=== PATIENT | female | born 1965 | race Caucasian/White ===

== ENCOUNTER → 2020-06-16 13:07 | Outpatient (BNVA) | payer OTHER, SELFPAY | PROVIDERS: PCP Internal Medicine; Referring Provider Internal Medicine; Visit Provider Orthopaedic Surgery | DX: Z76.89 Persons encountering health services in other specified circumstances (principal) ==

== ENCOUNTER 2020-08-11 13:25 | Outpatient (REF) | payer OTHER, SELFPAY ==
--- NOTE | 2020-08-11 | US_ITS ---
EXAMINATION: COLOR-FLOW DUPLEX IMAGING OF THE BILATERAL LOWER EXTREMITY ARTERIAL SYSTEM. VELOCITY MEASUREMENTS THROUGHOUT THE FEMORAL ARTERIES CLINICAL INFORMATION: This is a 55-year-old female with absent pulses. Possible claudication. Interventional Radiologist: Finn De Souza M.D., F.S.I.R., F.A.C.R. RIGHT FEMORAL RUNOFF VELOCITIES: The right common femoral artery measures 152 cm/s and triphasic. The right profunda femoral artery is 86 cm/s and is triphasic. Right proximal superficial femoral artery measures 92 cm/s and triphasic. Mid superficial femoral artery is 150 cm/s and triphasic. Distal right superficial femoral artery measures 101 cm/s and is triphasic. Right popliteal velocity measures 63 cm/s and is triphasic. The posterior tibial artery velocity measures 108 cm/s and was biphasic. LEFT FEMORAL RUNOFF VELOCITIES: The left common femoral artery measures 184 cm/s and triphasic. The left profunda femoral artery is 148 cm/s and is triphasic. Left proximal superficial femoral artery measures 121 cm/s and triphasic. Mid superficial femoral artery is 121 cm/s and triphasic. Distal left superficial femoral artery measures 90 cm/s and is triphasic. Left popliteal velocity measures 85 cm/s and is triphasic. The posterior tibial artery velocity measures 82 cm/s and was biphasic. US/US arterial duplex LE BI IMPRESSION: 1. There is no hemodynamically significant stenosis bilaterally in the lower extremities at rest.
== END 2020-08-11 13:26 | disposition home or self-care (01) ==
LOC: HO.US 13:25
PROVIDERS: PCP Internal Medicine; Visit Provider Internal Medicine
DX: R09.89 Other specified symptoms and signs involving the circulatory and respiratory systems (principal)
CPT/HCPCS: 93925

== ENCOUNTER 2020-09-03 08:25 | Outpatient (REF) | payer OTHER, SELFPAY ==
--- NOTE | 2020-09-03 08:33 | MM_ITS ---
EXAMINATION: MM SCREENING DIGITAL BREAST TOMOSYNTHESIS, BILATERAL CLINICAL INFORMATION: Screening. Asymptomatic. The lifetime risk of breast cancer based on the Tyrer-Cuzick Model is 16%. COMPARISON: Mammography: 08/28/2019, 08/22/2018, 08/14/2017 TECHNIQUE: Digital breast tomosynthesis is performed in both the craniocaudal and mediolateral oblique views along with computer-aided detection (CAD). Synthesized 2D images are generated from the tomosynthesis. FINDINGS: There are scattered areas of fibroglandular density (ACR BI-RADS breast composition Category b). Parenchymal pattern is similar to prior exams. There is no developing density or interval mass or architectural abnormality. Fine grouped punctate calcifications close to skin 9:00 left breast are stable, likely dermal. The skin contours are unremarkable. MM/MM tomosynthesis screening BI IMPRESSION: No mammographic evidence of malignancy. ASSESSMENT: BI-RADS 2: Benign RECOMMENDATION: Routine annual mammography screening. This patient's information was entered into a reminder system with a target due date for their next mammogram.
== END 2020-09-03 08:26 | disposition home or self-care (01) ==
LOC: HO.MAMMO 08:25
PROVIDERS: PCP Internal Medicine; Visit Provider Internal Medicine
DX: Z12.31 Encounter for screening mammogram for malignant neoplasm of breast (principal)
CPT/HCPCS: 77063; 77067

== ENCOUNTER 2021-06-07 13:49 | Outpatient (REF) | payer OTHER, SELFPAY ==
[2021-06-07 14:18] LABS: COVID-19 Test Negative (Negative)
== END 2021-06-07 13:50 | disposition home or self-care (01) ==
LOC: HO.LAB 13:49
PROVIDERS: PCP Internal Medicine; Visit Provider Internal Medicine
DX: Z20.822 Contact with and (suspected) exposure to COVID-19 (principal)
CPT/HCPCS: 36415; 87635; C9803

== ENCOUNTER 2021-09-14 08:29 | Outpatient (REF) | payer OTHER, SELFPAY ==
--- NOTE | ~2021-09-14 | MM_ITS ---
EXAMINATION: MM SCREENING DIGITAL BREAST TOMOSYNTHESIS, BILATERAL CLINICAL INFORMATION: Screening. Asymptomatic. The lifetime risk of breast cancer based on the Tyrer-Cuzick Model is 17%. COMPARISON: Mammography: 09/03/2020, 08/28/2019, 08/22/2018 TECHNIQUE: Digital breast tomosynthesis is performed in both the craniocaudal and mediolateral oblique views along with computer-aided detection (CAD). Synthesized 2D images are generated from the tomosynthesis. FINDINGS: There are scattered areas of fibroglandular density (ACR BI-RADS breast composition Category b). There are no significant masses, abnormal calcifications, or other abnormalities. There are a few tightly grouped punctate uniform round calcifications again seen close to skin mid 9:00 left breast similar to prior study. The skin contours are smooth. There are no significant changes. MM/MM tomosynthesis screening BI IMPRESSION: No mammographic evidence of malignancy. ASSESSMENT: BI-RADS 2: Benign RECOMMENDATION: Routine annual mammography screening. This patient's information was entered into a reminder system with a target due date for their next mammogram.
== END 2021-09-14 08:30 | disposition home or self-care (01) ==
LOC: HO.MAMMO 08:29
PROVIDERS: PCP Internal Medicine; Visit Provider Internal Medicine
DX: Z12.31 Encounter for screening mammogram for malignant neoplasm of breast (principal)
CPT/HCPCS: 77063; 77067

== ENCOUNTER 2022-08-10 13:45 | Outpatient (REF) | payer OTHER, SELFPAY ==
--- NOTE | ~2022-08-10 | US_ITS ---
EXAMINATION: US VENOUS ULTRASOUND WITH DOPPLER LOWER EXTREMITY, LEFT CLINICAL INFORMATION: Left side/leg pain and swelling. COMPARISON: None TECHNIQUE: Ultrasound of the deep veins is performed from the hip to the calf with compression sonography and color and pulse Doppler assessment. Spectral analysis with color-flow imaging is performed. FINDINGS: The common femoral vein is compressible and exhibits a normal phasic waveform; this suggests that the iliac veins are widely patent above. Within the proximal thigh, the visualized profunda femoris vein is normal. The examined greater saphenous vein and saphenofemoral junction are normal. Superficial femoral vein is patent in the proximal, mid and distal thigh. Popliteal vein is normal to the level of the trifurcation. On compression mcintyre scale and color Doppler images, the visualized deep calf veins are grossly patent. No evidence of Acevedo's cyst. Additional images were acquired in the left anterior thigh in the region of pain. No evidence of fluid collection or soft tissue edema in this area. US/US venous duplex LE LT IMPRESSION: No evidence of deep vein thrombosis in the left lower extremity.
== END 2022-08-10 13:46 | disposition home or self-care (01) ==
LOC: HO.US 13:45
PROVIDERS: PCP Internal Medicine; Visit Provider Internal Medicine
DX: R22.43 Localized swelling, mass and lump, lower limb, bilateral (principal)
CPT/HCPCS: 93971

== ENCOUNTER 2022-09-20 08:09 | Outpatient (REF) | payer OTHER, SELFPAY ==
--- NOTE | ~2022-09-20 | MM_ITS ---
EXAMINATION: BONE DENSITOMETRY CLINICAL INDICATION: Postmenopausal. COMPARISON: None (current study represents initial baseline exam). TECHNIQUE: Using a [employer] DXA System (software version: 13.1) manufactured by [employer], dual-energy x-ray absorptiometry was performed of the lumbar spine and left hip. The images are of good technical quality. Summary results are attached. FINDINGS: AP SPINE L1-L4: BMD 0.962 g/cm2, Z-score -2.0, T-score -1.8, osteopenia. LEFT FEMUR, NECK: BMD 0.930 g/cm2, Z-score -0.4, T-score -0.8, normal. LEFT FEMUR, TOTAL: BMD 0.981 g/cm2, Z-score -0.3, T-score -0.2, normal. IDENTIFIED RISK FACTORS: Low calcium intake. Menopause. HISTORY OF FRACTURE: Pelvis. Other (ankle). MEDICATIONS: None listed. MM/XR DEXA axial skeleton IMPRESSION: 1. DIAGNOSIS: Osteopenia based on the lowest T-score value of -1.8 in the lumbar spine applying World Health Organization criteria. 2. 10-YEAR FRACTURE RISK PREDICTION, FRAX: Major osteoporotic fracture (clinical spine, forearm, hip or shoulder) 9.8%. Hip fracture 0.4%. 3. Treatment Recommendations: NOF guidelines recommend consideration for treatment in postmenopausal women and men age 50 and older presenting with the following: -A hip or vertebral (clinical or morphometric) fracture. -T-score less than or equal to -2.5 at the femoral neck or spine after appropriate evaluation to exclude secondary causes. -Low bone mass at the hip or spine and a 10-year fracture probability by FRAX of greater than or equal to 3% for hip fracture or greater than or equal to 20% for major osteoporotic fracture based on the [place] adapted WHO algorithm. 4. Other Recommendations: All treatment decisions require clinical judgment and consideration of individual patient factors, including patient preferences, comorbidities, previous drug use, risk factors not captured in the FRAX model (e.g. frailty, falls, vitamin D deficiency, increased bone turnover, interval significant decline in bone density) and possible under or overestimation of fracture risk by FRAX. Additional medical evaluation for secondary cause of low bone mineral density may be appropriate. FUTURE SCAN RECOMMENDATION: People with diagnosed cases of osteoporosis or at high risk for fracture should have regular bone mineral density tests. For patients eligible for Medicare, routine testing is allowed once every 2 years. The testing frequency can be increased to one year for patients who have rapidly progressing disease, those who are receiving or discontinuing medical therapy to restore bone mass, or have additional risk factors.
--- NOTE | ~2022-09-20 | MM_ITS ---
EXAMINATION: MM SCREENING DIGITAL BREAST TOMOSYNTHESIS, BILATERAL CLINICAL INFORMATION: Screening. Asymptomatic. The lifetime risk of breast cancer based on the Tyrer-Cuzick Model is 13%. COMPARISON: Mammography: 09/14/2021, 09/03/2020, 08/28/2019 TECHNIQUE: Digital breast tomosynthesis is performed in both the craniocaudal and mediolateral oblique views along with computer-aided detection (CAD). Synthesized 2D images are generated from the tomosynthesis. FINDINGS: There are scattered areas of fibroglandular density (ACR BI-RADS breast composition Category b). There are no significant masses, abnormal calcifications, or other abnormalities. Tightly grouped fine calcifications close to skin medial left breast possibly dermal, stable. No developing density or architectural abnormality. The axilla are unremarkable. MM/MM tomosynthesis screening BI IMPRESSION: No mammographic evidence of malignancy. ASSESSMENT: BI-RADS 2: Benign RECOMMENDATION: Routine annual mammography screening. This patient's information was entered into a reminder system with a target due date for their next mammogram.
== END 2022-09-20 08:10 | disposition home or self-care (01) ==
LOC: HO.MAMMO 08:09
PROVIDERS: Visit Provider Internal Medicine
DX: Z12.31 Encounter for screening mammogram for malignant neoplasm of breast (principal); Z13.820 Encounter for screening for osteoporosis; Z78.0 Asymptomatic menopausal state
CPT/HCPCS: 77063; 77067; 77080

== ENCOUNTER → 2022-10-28 09:34 | Outpatient (BNVA) | payer OTHER, SELFPAY | PROVIDERS: PCP Internal Medicine; Visit Provider Urology | DX: Z13.89 Encounter for screening for other disorder (principal) ==

== ENCOUNTER 2022-11-07 08:20 | Outpatient (REF) | payer OTHER, SELFPAY ==
--- NOTE | ~2022-11-07 | US_ITS ---
EXAMINATION: US ABDOMEN COMPLETE CLINICAL INFORMATION: Other microscopic hematuria. COMPARISON: None available. TECHNIQUE: Real-time imaging of the abdominal viscera. FINDINGS: PANCREAS: Normal. ABDOMINAL AORTA: The proximal, mid, and distal segments are normal in caliber. INFERIOR VENA CAVA: Visualized portions are normal. LIVER: Normal. The liver is normal in size. The liver contour is normal. Parenchymal echogenicity is normal. No focal hepatic lesion. There is no intrahepatic biliary duct dilatation seen. GALLBLADDER: The gallbladder is physiologically distended without evidence of stones, sludge, polyps, wall thickening or pericholecystic fluid. COMMON BILE DUCT: Normal in caliber measuring 0.2 cm in diameter. RIGHT KIDNEY: Normal. No hydronephrosis. No renal calculi or focal parenchymal lesions. The kidney measures 10.9 cm in maximum dimension. LEFT KIDNEY: Normal. No hydronephrosis. No renal calculi or focal parenchymal lesions. The kidney measures 11.2 cm in maximum dimension. SPLEEN: Normal. The spleen measures 9.0 cm in maximum dimension. FREE FLUID: None. US/US abdomen complete IMPRESSION: Normal abdominal ultrasound.
== END 2022-11-07 08:21 | disposition home or self-care (01) ==
LOC: HO.HMGCX 08:20
PROVIDERS: PCP Internal Medicine; Visit Provider Urology
DX: R31.29 Other microscopic hematuria (principal)
CPT/HCPCS: 76700

== ENCOUNTER → 2022-12-01 13:47 | Outpatient (BNVA) | payer OTHER, SELFPAY | PROVIDERS: PCP Internal Medicine; Visit Provider Urology | DX: R31.29 Other microscopic hematuria (principal) | CPT/HCPCS: 52000 ==

== ENCOUNTER 2023-09-22 08:04 | Outpatient (REF) | payer OTHER, SELFPAY ==
--- NOTE | ~2023-09-22 | MM_ITS ---
EXAMINATION: MM SCREENING DIGITAL BREAST TOMOSYNTHESIS, BILATERAL CLINICAL INFORMATION: Screening. Asymptomatic. COMPARISON: Mammography: This study is compared with prior exams dating back to 2018. TECHNIQUE: Digital breast tomosynthesis is performed in both the craniocaudal and mediolateral oblique views along with computer-aided detection (CAD). Synthesized 2D images are generated from the tomosynthesis. FINDINGS: There are scattered areas of fibroglandular density (ACR BI-RADS breast composition Category b). There are no significant masses, abnormal calcifications, or other abnormalities. Few, benign, unchanged calcifications are present in the left breast. MM/MM tomosynthesis screening BI IMPRESSION: No mammographic evidence of malignancy. ASSESSMENT: BI-RADS BI-RADS 1 - Negative RECOMMENDATION: Routine annual mammography screening. 1 year F/U This examination should not preclude the clinical evaluation of a suspicious palpable abnormality. This patient's information was entered into a reminder system with a target due date for their next mammogram.
== END 2023-09-22 08:05 | disposition home or self-care (01) ==
LOC: HO.MAMMO 08:04
PROVIDERS: PCP Internal Medicine; Visit Provider Internal Medicine
DX: Z12.31 Encounter for screening mammogram for malignant neoplasm of breast (principal)
CPT/HCPCS: 77063; 77067

== ENCOUNTER → 2023-09-22 08:15 | Outpatient (BNV) | payer OTHER, SELFPAY | PROVIDERS: PCP Internal Medicine; Visit Provider Radiology Diagnostic Radiology | DX: Z12.31 Encounter for screening mammogram for malignant neoplasm of breast (principal) | CPT/HCPCS: 77063; 77067 ==

== ENCOUNTER 2024-09-27 08:25 | Outpatient (REF) | payer OTHER, SELFPAY ==
--- OUTSIDE RECORDS SUMMARY | 2024-09-27 08:38 | XMS_ITS | Patient Health Record ---
Author Organization [employer] [facility] Address [address] [place] [address] Care Team Providers Care Chha Name Role Phone SHILOH JACKMAN M.D. Primary Care Provider Unavail able Katherin Niño Unavailable [phone] ANGELIQUE PETERSON Unavailable [phone] Allergies No Known Allergies Results Component Value Reference Range Notes Urinalysis Reviewed date:09/29/2023 10:59:57 AM Interpretation: Performing Lab: Notes/Report: PH 5.0 PROTEIN Neg GLUCOSE Neg BLOOD Small THIN PREP,HPV,NASRA IF HPV+ ( >29YR)(DIAG) Reviewed date:10/04/2023 11:23:56 AM Interpretation: Performing Lab:Testing performed or reported by [facility], a Service of [facility], [address] [place] [address] Jimy Carrasquillo MD, Tank Refinisher [facility]# [id number] Notes/Report: Patient Name: CORTEZ REHMAN Patient : 1965 (Age: 58) Lab Collection Date: 09/29/2023 Accession Date: 09/29/2023 Sign Out Date: 10/04/2023 Tissue Source: 1: THINPREP COOK PRESSURE PAP TEST, CERVICAL/VAGINAL: Final Diagnosis: NEGATIVE FOR INTRAEPITHELIAL LESION OR MALIGNANCY. Satisfactory for evaluation. Endocervical/transformation zone present. Procedures/Addenda: Human Papilloma Virus, High-Risk(Reflex GT) Status: Signed Out Interpretation: Negative Methodology: Vendly Aptima HPV mRNA assay (Nucleic Acid Amplification Test, NAAT) Clinical History: Date of Last Menstrual Period: not available Menstrual History: Post-menopausal Contraceptive History: not available Ancillary Testing: HPV (Reflex GT) Case imaged by the FarfetchPrep Imaging System with manual rescreening or review. Performed at [facility] department of Cytology, [facility] Clinical History (other): Z01.419, 09/17/20 NIL neg HPV Phone #: [phone], On-Call Pathologist: [id number] Reason For Referral No Information Medications Medication SIG (Take, Route, Fr equency, Duration) Notes Start Date End Date Status clonazePAM 0.5 MG 1 tablet Orally Once a day Active Simvastatin 80 MG 1 tablet in the even ing Orally Once a day Active Sertraline HCl 50 MG 3 tablets Orally Once a day Active Omeprazole 20 MG 1 capsule 30 minutes before morning meal Orally Once a day for 30 day(s) 09/29/2023 Active Fioricet 50-300-40 MG 1 capsule as neede d Orally every 4 hrs Active Zetia 10 MG 1 tablet Orally Once a day Active Social History Tobacco Use: Social History Observation Description Date Details (start date - stop date) Former Smoker NA - NA Tobacco Use/Smoking Question Answer Notes Are you a former smoker How long has it been since you last smoked? 6-12 months Alcohol Screen (Audit-C) Question Answer Notes Did you have a drink containing alcohol in the p ast year? No Points 0 Interpretation Negative Sexual History Question Answer Notes Had sex in the past 12 months (vaginal, oral, or anal)? No Have you ever had a Sexually transmitted disease ? No Problems Problem Type SNOMED Code ICD Code Onset Dates Problem Status W/U Status Risk Notes Problem Postmenopausal atrophic vaginitis (17873677) Postmenopausal atrophic vaginitis (N95.2) Active confirmed Problem Postmenopausal bleeding (04872539) Postmenopausal bleeding (N95.0) Active confirmed Problem Morbid obesity (disorder) (114759892) Morbid (severe) obesity due to excess calories (E66.01) Active confirmed Problem Menopause (724295302) Menopausal and female climacteric states (N95.1) Active confirmed Vital Signs Temperature 97.4 degrees Fahrenheit 09/29/2023 Blood pressure diastolic 72 mm Hg 09/29/2023 Height 68 in 09/29/2023 Blood pressure systolic 134 mm Hg 09/29/2023 Weight 221 lbs 09/29/2023 BMI 33.6 kg/m2 09/29/2023 Encounters Encounter Location Date Provider Diagnosis Total [address] [address] 10/13/2023 Katherin Niño [facility] [address] [place] [address] 09/29/2023 Katherin Niño Encounter for gynecological examination (general) (routine) without abnormal findings Z01.419 ; Encounter for screening mammogram for malignant neoplasm of breast Z12.31 ; Other specified disorders of bone density and structure, multiple sites M85.89 ; Morbid (severe) obesity due to excess calories E66.01 and Hematuria, unspecified R31.9 [facility] [employer] [facility] [address] [place] [address] 10/26/2023 Katherin Niño Assessments Encounter Date Diagnosis (ICD Code) Assessment Notes Treatment Notes Treatment Clinical Notes Section Notes 09/29/2023 Encounter for gynecological examination (general) (routine) without abnormal findings (ICD-10 - Z01.419) PAP TEST WITH HPV TYPING WAS OBTAINED. 09/29/2023 Encounter for screening mammogram for malignant neoplasm of breast (ICD-10 - Z12.31) REGULAR MAMMOGRAMS AND SBE'S WERE RECOMMENDED. 09/29/2023 Other specified disorders of bone density and structure, multiple sites (ICD-10 - M85.89) DISCUSSED OSTEOPENIA AND ITS IMPACT ON HER HEALTH. ADEQUATE CALCIUM AND VIT D. WEIGHT BEARING EXERCISES. REPEAT BMD IN 2024. 09/29/2023 Morbid (severe) obesity due to excess calories (ICD-10 - E66.01) DISCUSSED THICK ABDOMINAL WALL AND DIFFICULTY IN ASSESSING HER OVARIES AND UTERUS. RECOMMENDED PELVIC ULTRASOUND. SHE AGREED. NEGATIVE EFFECTS OF OBESITY ON HER HEALTH WERE DISCUSSED. WEIGHT LOSS PROGRAM WAS RECOMMENDED. 09/29/2023 Hematuria, unspecified (ICD-10 - R31.9) HEMATURIA WORK UP DONE LAST YEAR WAS NEGATIVE. Plan Of Treatment Pending Test Test Name Order Date Urinalysis 03/19/2018 Urinalysis 02/25/2019 THIN PREP,HPV,NASRA IF HPV+ (>29YR)(SCRN) 03/19/2018 BONE DENSITY 09/17/2020 BONE DENSITY 09/22/2021 [facility] Digital Mammo Screening 09/27/2022 [facility] Digital Mammo Screening 09/29/2023 [facility] Digital Mammo Screening 09/22/2021 [facility] Digital Mammo Screening 09/17/2020 ULTRASOUND: PELVIC W/TRANSVAGINAL 2018 Next Appt Details Provider Name:Katherin gonzalez, 10/07/2024 10:20:00 AM, [address], [address], [place], [address], Insurance Providers Payer Name Payer Address Payer Phone Subscriber Number Group Number Insured Name Patient Relationship to Insured Coverage Start Date Coverage End Date [employer] [address] SHEYLA BROWN [id number] APOORVA REHMAN Spouse - patient is the spouse of the insured Medical (General) History Medical History History ICD Code Headache R51 Postmenopausal bleeding N95.0 Other recurrent depressive disorders F33 .8 Anxiety disorder, unspecified F41.9 Postmenopausal atrophic vaginitis N95.2 Menopausal and female climacteric states N95.1 Polyp of corpus uteri N84.0 Abnormal weight gain R63.5 Pelvic Pain R10.2 Other specified disorders of bone densit y and structure, multiple sites M85.89 Surgical History Surgery Date(Month/Year) Colonoscopy Hysteroscopy, Polypectomy with Truclear, Fractional D&C 07/06/17 Hospitalization History Reason Date(Month/Year) See Surgical Hx 2 Vaginal Deliveries
--- OUTSIDE RECORDS SUMMARY | 2024-09-27 08:38 | XMS_ITS ---
Author Organization [facility] [employer] [facility] Address [address] [place] [address] [address] [place] [address] Care Team Providers Care Assistant Plant Control Operator Name Role Phone AUGUSTINA Burgos, SHILOH Primary Care Provider Unavail Katherin Wilhelm Unavailable [phone] REASON FOR VISIT ULTRA - TAW CK OVARIES Encounters Encounter Location Date Provider Diagnosis [facility] [employer] [address] [place] [address] 11/03/2023 Katherin Niño Plan Of Treatment Next Appt Details Provider Name:Katherin gonzalez, 10/07/2024 10:20:00 AM, [address] [place] [address], [facility] [address], [place], [address], Progress Notes * TEN REHMANB: 6 (59 yo F)Acc No.[id number]:11/03/2023 PROGRESS NOTES Patient:?CORTEZ REHMAN Appointment Provider:?Katherin gonzalez M.D. :1965???Age:58 Y???Sex:Female D ate:11/03/2023 Address:[address] [place], [place] [id number] Pcp:SHILOH JACKMAN M.D. Subjective: * Chief Complaints: * ???1. ULTRA - TAW CK OVARIES . * Medical History:? Objective: * Vitals:? Assessment: Plan: * Treatment: * Images: Billing Information: * Visit Code:? * Procedure Codes:? * Electronic signature of Debbie Niño MD on 09/27/2024 at 08:38 AM EST Sign off status: Pending * Appointment Provider:?Katherin Niño M.D. Date:?11/03/2023 Generated for Melody cox/Eleazar/Jerry on:?09/27/2024 08:38 AM EST
--- OUTSIDE RECORDS SUMMARY | 2024-09-27 08:38 | XMS_ITS ---
Author Organization [facility] Address [address] [place] [address] Care Team Providers Care Missile Mechanic Name Role Phone SHILOH JACKMAN M.D. 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 [address], [place], [address], Progress Notes * TEN REHMANB: 6 (59 yo F)Acc No.[id number]:02/09/2024 PROGRESS NOTES Patient:?CORTEZ REHMAN Provider:?ANGELIQUE PETERSON MD :1965???Age:58 Y???Sex:Female D ate:02/09/2024 Address:[address] [place], [place] [id number] Pcp:SHILOH JACKMAN M.D. Subjective: * Chief Complaints: * ???1. Annual TREE TRIMMER Physical. * HPI: ???Constitutional:? 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 She has been in state of [...] She exercises x days/week by . * ROS:?Annual Interior Design Instructor Exam ROS:?Bowel habit changes?denies.?Bladder symptoms?denies.?Vaginal discharge, unusual?denies.?Vaginal itch or odor?denies.?weight or appetite changes?denies.?Chest pains, SOB?denies.?depression?denies.?Breast:?Denies?Breast lump.?Denies?Nipple discharge.?Hematology:?Denies?Swollen glands.?Skin:?Patient denies?changing moles.?Psychiatric:?Denies?Anxiety.? * Medical History:? Objective: * Vitals:? * Examination: ???General Examination: ?GENERAL APPEARANCE:?in no acute distress, well developed, well nourished, social work manager present in room.?HEAD:?normocephalic, atraumatic.?NECK/THYROID:?neck supple, full range of motion, thyroid normal.?LYMPH NODES:?no axillary or supraclavicular adenopathy.?SKIN:? normal, good turgor, no rashes, no suspicious lesions.?BREASTS:? normal, no dimpling, no discharge, no drainage, no masses palpable bilaterally, nontender.?ABDOMEN:? soft, non-tender, non distended without masses or hepatosplenomegay.?RECTAL:? normal tone, no masses palpable.?BACK:? no costovertebral angle tenderness.?FEMALE GENITOURINARY:?Vulva without lesions or masses, vagina pink without abnormal discharge, lesions or masses, cervix appears normal and is not tender to palpation, uterus is normal size, mobile, nontender and anteverted, ovaries are not palpable.?NEUROLOGIC:? alert and oriented, gait normal.?PSYCH:? alert, oriented, cognitive function intact, cooperative with exam, good eye contact, mood/affect full range, speech clear.? Assessment: * Assessment: 1.?Encounter for gynecologic al examination (general) (routine) without abnormal findings - Z01.419 (Primary)???2.?Encounter for screening mammogram for malignant neoplasm of breast - Z12.31???3.?Encounter for screening for infections with a predominantly sexual mode of transmission - Z11.3??? Plan: * Treatment: 2.?Encounter for screening m ammogram for malignant neoplasm of breast?Imaging: MM Digital Screening Mammogram 3D * Follow Up:?1 Year (Reason: Y early Interior Design Instructor Exam) * Images: Billing Information: * Visit Code:? 13178 Preventive Care Est Pt. Age 40-64. * Procedure Codes:? 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 She has been in state of [...] General Examination GENERAL APPEARANCE: in no ac [place] distress, well developed, well nourished, social work manager present in room HEAD: normocephalic, atrau matic [...]
--- OUTSIDE RECORDS SUMMARY | 2024-09-27 08:39 | XMS_ITS ---
Author Organization [facility] Address [address] [place] [address] [address] [place] [address] Care Team Providers Care Health And Safety Tech Name Role Phone SHILOH JACKMAN M.D. Primary Care Provider Unavail Katherin Wilhelm [phone] WILDER REQUEST 2023 Encounters Encounter Location Date Provider Diagnosis [facility] [address] [place] [address] 10/26/2023 Katherin Niño Plan Of Treatment Next Appt Details Provider Name:Katherin gonzalez, 10/07/2024 10:20:00 AM, [address] [place] [address], [address], [place], [address], Progress Notes * MARA REHMANDIONNAB: 6 (59 yo F)Acc No.[id number]:10/26/2023 Patient:?CORTEZ REHMAN :1965???Age:58 Y???Sex:Female Address:[address] [place] [address], [address] * true * Date:? Generated for Printi ng/Fajorgeg/eTransmitting on:?09/27/2024 08:38 AM EST
== END 2024-09-27 08:26 | disposition home or self-care (01) ==
LOC: HO.MAMMO 08:25
PROVIDERS: PCP Internal Medicine; Visit Provider Internal Medicine
DX: Z12.31 Encounter for screening mammogram for malignant neoplasm of breast (principal)
CPT/HCPCS: 77063; 77067

== ENCOUNTER → 2024-09-27 08:30 | Outpatient (BNV) | payer OTHER, SELFPAY | PROVIDERS: PCP Internal Medicine; Visit Provider Internal Medicine | DX: Z12.31 Encounter for screening mammogram for malignant neoplasm of breast (principal) | CPT/HCPCS: 77063; 77067 ==

== ENCOUNTER 2024-10-29 10:24 | Outpatient (AMB) | payer OTHER, SELFPAY ==
--- NOTE | 2024-10-29 10:25 | A.OFFPC_ITS ---
Vital Signs 10/29/24 10:36 Height 5 ft 7 in Weight 198 lb BMI 31.0 BP 140/82 H Blood Pressure Location Rt brachial Pulse 88 Pulse Source Pulse Oximeter Temp 97.2 F Pulse Oximetry (%) 97 Intake Visit Reasons: New Patient Intake Note: menopause Allergies No Known Allergies Allergy (Verified 10/29/24 11:57) Medication List - Last Reconciled 10/29/24 by Elvai Morgan PA-C [id number]-[id number]-ublm 50-325-40 mg tabs PO clonazepam 0.5 mg PO BID PRN estradiol 1 patch transdermal 2XW ezetimibe (Zetia) 10 mg PO DAILY ibuprofen (Motrin IB) 200 mg PO Q6H PRN sertraline (Zoloft) 25 mg PO DAILY simvastatin 80 mg PO DAILY PFSH Medical History (Updated 10/29/24 @ 12:14 by Elvia Morgan PA-C) Blurry vision Hormone imbalance Establishing care with new doctor, encounter for Hyperlipidemia History of colon polyps Tinnitus Palpitations Microscopic hematuria UTI (urinary tract infection) Depression Anxiety High cholesterol HTN (hypertension) Social History Alcohol intake: never Current occupational status: unemployed Questionnaire PHQ-9 Over the last 2 weeks, how often have you been bothered by any of the following problems? 1. Little interest or pleasure in doing things: several days 2. Feeling down, depressed, or hopeless: several days 3. Trouble falling or staying asleep, or sleeping too much: not at all 4. Feeling tired or having little energy: nearly every day 5. Poor appetite or overeating: not at all 6. Feeling bad about yourself - or that you are a failure or have let yourself or your family down: nearly every day 7. Trouble concentrating on things, such as reading the newspaper or watching television: several days 8. Moving or speaking so slowly that other people could have noticed. Or the opposite - being so fidgety or restless that you have been moving around a lot more than usual: not at all 9. Thoughts that you would be better off or of hurting yourself in some way: not at all Total score: 9 Depression Screening Interpretation: Positive Depression Screening Follow-up: Existing condition and In treatment Depression Screening Done: Yes 23932 - PHQ-9 Billing: Yes Source: Developed by Drs. Luis Carvalho, Lauren Mohan, Gonzalez Edwards and colleagues, with an educational prashanth from [facility]. Thrive Questionnaire Date Thrive assessed: 10/29/24 I am a: Patient What is your living situation today?: I have a steady place to live Within the past 12 months, did the food you bought not last and you didn't have the money to get more?: Never true Within the past 12 months, did you worry whether your food would run out before you got money to buy more?: Never true Do you have trouble paying for medicines?: No Do you have trouble getting transportation to medical appointments?: No Do you have trouble paying your heating and electricity bill?: No Do you have trouble taking care of your child, family member or friend?: No Do you have trouble with day-to-day activities such as bathing, preparing meals, shopping, managing finances, etc.?: No Are you currently unemployed and looking for a job?: No (retired) Are you interested in more education?: No Currently or been in a relationship where the following occur: No concerns reported THRIVE Score: 0 AUDIT C Alcohol Use Questionnaire (AUDIT-C) 1. How often do you have a drink containing alcohol?: Never 3. How often do you have six or more drinks on one occasion?: Never Total Score: 0 Score Reviewed/Action Taken: No MARILYN-7 AMB Questionnaire MARILYN-7 Date MARILYN - 7 assessed: 10/29/24 Feeling nervous, anxious, or on edge: 1 = Several days Not being able to stop or control worryin = Nearly every day Worrying too much about different things: 3 = Nearly every day Trouble relaxin = Nearly every day Being so restless that it is hard to sit still: 0 = Not at all Becoming easily annoyed or irritable: 1 = Several days Feeling afraid as if something awful might happen: 1 = Several days Total MARILYN-7 score (0-4 normal; 5-9 mild; 10-14 moderate; 15-21 severe): 12 Source: Developed by Drs. Luis Carvalho, Lauren Mohan, Gonzalez Edwards and colleagues, with an educational prashanth from [facility]. MARILYN-7 Assessment Billing MARILYN-7 Assessment Tool: MARILYN-7 Assessment 81885 Physical exam (Primary Care) Vital Signs: Last Vital Signs Temp 97.2 F 10/29/24 10:36 Pulse 88 10/29/24 10:36 BP 140/82 H 10/29/24 10:36 Pulse Ox 97 10/29/24 10:36 Care Plan Goal for BP management: <130/80 patient will be started on 5 mg of lisinopril will return in 1 month. BMI result Body Mass Index 31.0 BMI Assessment/Plan discussion: High BMI High, discussed plan: lifestyle, weight reduction, dietary, physical activity and alcohol moderation Depression Screening Interpretation: Positive Depression Screening Follow-up: Existing condition and In treatment Currently or been in a relationship where the following occur: No concerns reported Coding Level of Care Code Est Pt Level 4 (78271) Complex EM visit Add On G2211 Diagnoses Establishing care with new doctor, encounter for Z76.89 Palpitations R00.2 Tinnitus H93.19 Depression F32.9 Microscopic hematuria R31.29 History of colon polyps Z86.0100 Hyperlipidemia E78.5 HTN (hypertension) I10 Anxiety F41.9 Hormone imbalance E34.9 Blurry vision H53.8 Additional Codes PHQ-9 - 69686 - PHQ-9 Billing: Yes ([id number]) MARILYN-7 Assessment Billing - MARILYN-7 Assessment Tool: MARILYN-7 Assessment 48365 ([id number]) Assessment & Plan Assessment & Plan (1) Establishing care with new doctor, encounter for: Code(s): Z76.89 - Persons encountering health services in other specified circumstances Category: Medical (2) Palpitations: Code(s): R00.2 - Palpitations Category: Medical Plan: Will refer patient for outpatient labs to assess any chemistry abnormalities, will also refer for EKG and 3 day Holter monitor. Condition is stable will continue to monitor. (3) Tinnitus: Code(s): H93.19 - Tinnitus, unspecified ear Category: Medical Plan: Patient with chronic tinnitus to right ear and decreased hearing will refer to ENT for further evaluation and management. Condition is chronic and stable continue to monitor. (4) Depression: Code(s): F32.9 - Major depressive disorder, single episode, unspecified Category: Medical Plan: Patient being followed by Dr. Janay Bowens. Currently being prescribed Sertraline [address] Mead was prescribing the patient's Clonazepam 0.5 mg PO BID. I explained to the patient if she can speak to her psychiatrist about prescribing all psychiatric medications and patient reports she will discuss this with her. Condition is chronic and stable continue to monitor. (5) Microscopic hematuria: Code(s): R31.29 - Other microscopic hematuria Category: Medical Plan: Patient with microscopic hematuria has been seen by Urology in the past and was cleared. Condition is chronic and stable continue to monitor. (6) History of colon polyps: Code(s): Z86.0100 - Personal history of colon polyps, unspecified Category: Medical Plan: Patient had a colonoscopy approximately 9 years ago and had benign polyps. She is due for colonoscopy next year. Condition is stable continue to monitor. (7) Hyperlipidemia: Code(s): E78.5 - Hyperlipidemia, unspecified Category: Medical Plan: Total cholesterol goal less than 200, triglyceride level goal less than 150, LDL level goal less than 100, HDL level goal greater than 40. Patient will have fasting labs before her next appointment. Patient to continue simvastatin 80 mg daily, Zetia 10 mg daily. Condition is chronic and stable will continue to monitor. (8) HTN (hypertension): Code(s): I10 - Essential (primary) hypertension Category: Medical Plan: Blood pressure goal less than 140/80. Patient has undiagnosed hypertension. Patient will be started on lisinopril 5 mg daily and return in 1 month to reassess blood pressure. Condition is stable will continue to monitor. (9) Anxiety: Code(s): F41.9 - Anxiety disorder, unspecified Category: Medical Plan: Patient being followed by Dr. Janay Bowens. Currently being prescribed Sertraline [address] Mead was prescribing the patient's Clonazepam 0.5 mg PO BID. I explained to the patient if she can speak to her psychiatrist about prescribing all psychiatric medications and patient reports she will discuss this with her. Condition is chronic and stable continue to monitor. (10) Hormone imbalance: Code(s): E34.9 - Endocrine disorder, unspecified Category: Medical Plan: Patient reports hormone imbalance currently on hormone replacement therapy with an IUD and estradiol patch. Being followed by Nona Bryan MD in [place]. Patient requesting additional labs to be completed due to she had an elevated prolactin level in the past and has never had it rechecked. Will recheck requested labs that patient specifically asked for. Condition is chronic and stable continue to monitor. (11) Blurry vision: Code(s): H53.8 - Other visual disturbances Category: Medical Plan: Patient reports blurry vision for the past 8-9 months. Reports that she seen the natural resources professor in June of 2024 with dilation of her eyes and was within normal limits. She was prescribed eye drops although she continues to have the blurry vision which has been persistent and unchanged not worsened. I explained to her that if she would like a 2nd opinion. Condition is chronic and stable continue to monitor. Plan Plan Patient was informed and verbally consented to the use of an ambient scribe for clinic note documentation during this visit. 1. Depression Continue current medications under psychiatrist's supervision. 2. Ganglion Cyst Continue observation; orthopedics referral if needed. 3. History Of Polyps Schedule follow-up colonoscopy in 2025. 4. Trace Hematuria Observe based on normal prior urological work-up. 5. Blurred Vision Consider ophthalmology second opinion. 6. Hyperlipidemia Continue simvastatin; annual lipid monitoring. 7. Migraines Continue OTC medications as needed; monitor migraine patterns. 8. Anxiety Current management with sertraline; continue therapy. 9. Tinnitus Referral to ENT for evaluation. 10. Hormone Imbalance Continue hormone therapy and reevaluate levels. 11. Essential Hypertension Start lisinopril 5 mg daily; monitor blood pressure. During the visit, I discussed with the patient her comprehensive care plan while considering her complex medical history, particularly focusing on her anxiety, depression, hypertension, and hormone imbalance. We talked about the benefits of continuing her current psychiatric medications and investigating potential contributing factors such as thyroid function, vitamin deficiencies, and reevaluation of hormone levels. The decision to prescribe lisinopril was described, emphasizing the need to manage her currently elevated yet not excessively high blood pressure. The potential use of ENT referral for addressing tinnitus, and the consideration for ophthalmology review to better understand her persistent blurred vision were highlighted. For her ongoing care, including the existing hormone replacement therapy and upcoming screening colonoscopy, these will remain part of her regular assessments. Follow-ups were explained to monitor her blood pressure, evaluate her response to new interventions, and address any further concerns are planned. Orders: Orders C Reactive Protein Today Z00.00 - Encounter for general adult medical examination without abnormal findings Lipid Panel Today Z00.00 - Encounter for general adult medical examination without abnormal findings TSH reflex Free T4 Today Z00.00 - Encounter for general adult medical examination without abnormal findings Erythrocyte Sedimentation Rate Today Z00.00 - Encounter for general adult medical examination without abnormal findings Zinc Today Z00.00 - Encounter for general adult medical examination without abnormal findings Parathyroid Hormone Intact Today Z00.00 - Encounter for general adult medical examination without abnormal findings Phosphorus Today Z00.00 - Encounter for general adult medical examination without abnormal findings Prolactin Today Z00.00 - Encounter for general adult medical examination without abnormal findings Complete Blood Count Auto Diff Today Z00.00 - Encounter for general adult medical examination without abnormal findings Comprehensive [place]. Panel Fast Today Z00.00 - Encounter for general adult medical examination without abnormal findings Hemoglobin A1c Today Z00.00 - Encounter for general adult medical examination without abnormal findings Magnesium Today Z00.00 - Encounter for general adult medical examination without abnormal findings Liver Panel Today Z00.00 - Encounter for general adult medical examination without abnormal findings Vitamin B12 and Folate Today Z00.00 - Encounter for general adult medical examination without abnormal findings Vitamin D 25-OH Total Today Z00.00 - Encounter for general adult medical examination without abnormal findings ECG 12 lead EKG Today R00.2 - Palpitations ECG 3 day holter monitor Today R00.2 - Palpitations Vitamin B1 Today Z00.00 - Encounter for general adult medical examination without abnormal findings Referrals Ear/Nose/Throat Referral H93.19 - Tinnitus, unspecified ear Medications: New lisinopril 5 mg PO DAILY 30 tabs 0RF htn Patient Instructions: Patient Instructions - Take lisinopril 5 mg daily, and measure blood pressure two hours post-dose. - Continue sertraline and clonazepam as prescribed. - Adhere to simvastatin regimen. - Schedule and complete recommended blood tests while fasting. - Attend the ENT appointment for tinnitus evaluation. - Follow up with hormone and ophthalmology evaluations as advised. - Monitor migraine frequency and manage with butalbital as needed. - Maintain scheduled follow-ups for blood pressure assessment and general progress. - Report any sudden or significant changes in symptoms immediately. Scribe Plan - Not visible on output: History of Present Illness The patient is a 59-year-old female presenting [facility] with a new primary care provider. She reports her doctor Dr. Mead retired therefore she found this new primary care location and would like to establish care here. She has a significant medical history marked by anxiety, depression, and hormone imbalance due to menopause. The latter is managed with hormone replacement therapy, including an estradiol patch and a Mirena IUD for progesterone delivery. The patient reports persistent symptoms of fatigue, blurred vision, and episodic tinnitus, with the latter having been constant for two years. She has also been experiencing migraines and heart palpitations intermittently over the past few months. The patient's longstanding hyperlipidemia is currently managed with simvastatin and zetia PO. Blood pressure readings typically present as elevated, indicative of probable undiagnosed hypertension. Weight loss has been observed over the past year without dietary changes. Her family history is notable for colon polyps, which she shares. 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 A ganglion cyst is present on her left foot, but it is not currently being actively treated. 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 - Reports no alcohol consumption. - Regular ophthalmology visits; history of ophthalmological assessment for b lurred vision. - No financial difficulties in obtaining medications or attending medical appointments. - Reports a balanced home environment with stable housing. Review of Systems - Neurological: Reports blurred vision, occasional headaches, migraines, and heart palpitations. - ENT: Reports tinnitus in the right ear. - General: Reports chronic fatigue and weight loss. Physical Exam Appearance: Alert. Oriented X3. No acute distress. Head: Normal external exam. Normocephalic. Atraumatic. Eyes: Pupils are equal, round, and reactive to light. Extraocular movements intact. Conjunctiva and sclera normal. Eyelids normal. Ears: External auditory canal normal. Tympanic membranes normal. Tinnitus noted in one ear. Throat: Pharynx normal. Uvula midline. Moist mucous membranes. Neck: Normal inspection. Neck supple. Full range of motion. No adenopathy. Thyroid Normal. No meningeal signs. No neck mass noted. Cardiovascular: Normal heart rate and rhythm. Heart sound normal. No murmurs noted. Pulses normal throughout. Blood pressure is 140/82, indicating prehypertension/hypertension stage 1. Respiratory: No respiratory distress. Painless inspiration. Breath sounds normal. No wheezes/rales/rhonchi noted. Chest nontender. No accessory muscle usage noted or decreased air movement noted. Abdomen: Soft and nontender. Bowel sounds normal in all 4 quadrants. No distention noted. No organomegaly noted. No visible injury noted. Back: No costovertebral angle tenderness. Full range of motion noted. Skin: Skin warm and dry. Normal skin color. Normal skin turgor. No rashes/lesions/lacerations noted. Extremities: No lower extremity edema. Extremities exhibit normal range of motion. Extremities nontender. Neuro: Oriented X 3. No motor deficit. No sensory deficit. Reflexes normal. Blurred vision noted.
[2024-10-29 10:36] VITALS: BP 140/82; PULSE 88; TEMP 36.2; O2SAT 97; BMI 31.0
--- OUTSIDE RECORDS SUMMARY | 2024-10-29 12:28 | XMS_ITS ---
Author Organization [facility] [employer] [facility] Address [address] [place] [address] [address] [place] [address] Care Team Providers Care Family Readiness Support Assistant Name Role Phone AUGUSTINA Burgos, SHILOH Primary Care Provider Unavail Katherin Wilhelm Unavailable [phone] REASON FOR VISIT ULTRA - TAW CK OVARIES Encounters Encounter Location Date Provider Diagnosis [facility] [address] [place] [address] 11/03/2023 Katherin Niño Plan Of Treatment Next Appt Details Provider Name:Katherin gonzalez, 10/10/2025 10:20:00 AM, [address] [place] [address], [address], [place], [address], Progress Notes * TEN REHMANB: 6 (59 yo F)Acc No.[id number]:11/03/2023 PROGRESS NOTES Patient:?CORTEZ REHMAN Appointment Provider:?Katherin gonzalez M.D. :1965???Age:58 Y???Sex:Female D ate:11/03/2023 Address:[address] [place], [place] [id number] Pcp:SHILOH JACKMAN M.D. Subjective: * Chief Complaints: * ???1. ULTRA - TAW CK OVARIES . * Medical History:? Objective: * Vitals:? Assessment: Plan: * Treatment: * Images: Billing Information: * Visit Code:? * Procedure Codes:? * Electronic signature of Debbie Niño MD on 10/29/2024 at 12:28 PM EDT Sign off status: Pending * Appointment Provider:?Katherin Niño M.D. Date:?11/03/2023 Generated for Melody cox/Eleazar/Jerry on:?10/29/2024 12:28 PM EDT
--- OUTSIDE RECORDS SUMMARY | 2024-10-29 12:29 | XMS_ITS | Patient Health Record ---
Author Organization [facility] Address [address] [place] [address] Care Team Providers Care Automotive Project Engineer Name Role Phone SHILOH JACKMAN M.D. Primary Care Provider Unavail able Katherin Niño Unavailable [phone] ANGELIQUE PETERSON Unavailable [phone] Allergies No Known Allergies Results Component Value Reference Range Notes Urinalysis Reviewed date:10/07/2024 02:40:33 PM Interpretation: Performing Lab: Notes/Report: PH 5.0 PROTEIN Neg GLUCOSE Neg BLOOD Small Reason For Referral No Information Medications Medication SIG (Take, Route, Fr equency, Duration) Notes Start Date End Date Status Fioricet 50-300-40 MG 1 capsule as neede d Orally every 4 hrs Active clonazePAM 0.5 MG 1 tablet Orally Once a day Active Zetia 10 MG 1 tablet Orally Once a day Active Sertraline HCl 100 MG 2 tablets Orally Once a day Active Simvastatin 80 MG 1 tablet in the even ing Orally Once a day Active Estradiol 0.075 MG/24HR Transdermal for 84 Days Active Social History Tobacco Use: Social History Observation Description Date Details (start date - stop date) Former Smoker NA - NA Sexual History Question Answer Notes Had sex in the past 12 months (vaginal, oral, or anal)? No Have you ever had a Sexually transmitted disease ? No AUDIT-C (Standard) Question Answer Notes Did you have a drink containing alcohol in the p ast year? No Points 0 Interpretation Negative Tobacco Control (Standard) Question Answer Notes Tobacco use: Former smoker How long has it been since you last smoked? 5-10 years Problems Problem Type SNOMED Code ICD Code Onset Dates Problem Status W/U Status Risk Notes Problem Postmenopausal atrophic vaginitis (97961597) Postmenopausal atrophic vaginitis (N95.2) Active confirmed Problem Postmenopausal bleeding (15437643) Postmenopausal bleeding (N95.0) Active confirmed Problem Morbid obesity (disorder) (185094010) Morbid (severe) obesity due to excess calories (E66.01) Active confirmed Problem Menopause (291138823) Menopausal and female climacteric states (N95.1) Active confirmed Vital Signs Temperature 97.4 degrees Fahrenheit 10/07/2024 Blood pressure diastolic 74 mm Hg 10/07/2024 Height 68 in 10/07/2024 Blood pressure systolic 128 mm Hg 10/07/2024 Weight 197 lbs 10/07/2024 BMI 29.95 kg/m2 10/07/2024 Encounters Encounter Location Date Provider Diagnosis [address] [place] [address] 10/07/2024 Katherin Niño Encounter for gynecological examination (general) (routine) without abnormal findings Z01.419 ; Hormone replacement therapy Z79.890 ; Postmenopausal bleeding N95.0 ; Encounter for screening mammogram for malignant neoplasm of breast Z12.31 and Other specified disorders of bone density and structure, multiple sites M85.89 Assessments Encounter Date Diagnosis (ICD Code) Assessment Notes Treatment Notes Treatment Clinical Notes Section Notes 10/07/2024 Encounter for gynecological examination (general) (routine) without abnormal findings (ICD-10 - Z01.419) NO PAP TEST, DUE IN 2026. 10/07/2024 Hormone replacement therapy (ICD-10 - Z79.890) DISCUSSED BENEFITS AND RISKS OF HRT. SHE WANTS TO CONTINUE. SHE ACCEPTS RISKS. 10/07/2024 Postmenopausal bleeding (ICD-10 - N95.0) DISCUSSED PMB AND ITS COMMON CAUSES. DISCUSSED LOW PROGESTERONE DOSE COMPARED TO HER ESTROGEH DOSE LEADING TO BLEEDING. CONSIDER EMB AND DISCUSSED PROCEDURE AND WHY THIS IS IMPORTANT. CONSIDER TAKING PROVERA OR AYGESTIN 5 MG DAILY FOR 12 DAYS Q 3 MONTHS OR INSERTING MIRENA IUD TO PROTECT THE ENDOMETRIUM. SEE REPRO ENDO RECOMMENDED BY DR WILDER. 10/07/2024 Encounter for screening mammogram for malignant neoplasm of breast (ICD-10 - Z12.31) REGULAR MAMMOGRAMS AND SBE'S WERE RECOMMENDED. 10/07/2024 Other specified disorders of bone density and structure, multiple sites (ICD-10 - M85.89) DISCUSSED HER LAST BMD RESULTS AND MILD OSTEOPENIA. ADEQUATE CALCIUM AND VIT D. WEIGHT BEARING EXERCISES. REPEAT BMD IN 2024. Plan Of Treatment Pending Test Test Name Order Date Urinalysis 03/19/2018 Urinalysis 02/25/2019 THIN PREP,HPV,NASRA IF HPV+ (>29YR)(SCRN) 03/19/2018 BONE DENSITY 09/22/2021 BONE DENSITY 09/17/2020 MM Digital Mammo Screening 09/22/2021 MM Digital Mammo Screening 09/27/2022 MM Digital Mammo Screening 09/29/2023 MM Digital Mammo Screening 10/07/2024 MM Digital Mammo Screening 09/17/2020 ULTRASOUND: PELVIC W/TRANSVAGINAL 2018 Next Appt Details Provider Name:Katherin gonzalez, 10/10/2025 10:20:00 AM, [address] [facility], [address], [place], [address], Insurance Providers Payer Name Payer Address Payer Phone Subscriber Number Group Number Insured Name Patient Relationship to Insured Coverage Start Date Coverage End Date [employer] [address] [place] [id number] [phone] [id number] APOORVA REHMAN Spouse - patient is the [...]
--- OUTSIDE RECORDS SUMMARY | 2024-10-29 12:29 | XMS_ITS ---
Author Organization [facility] Address [address] [place] [address] Care Team Providers Care Sanipractic Physician Name Role Phone SHILOH JACKMAN M.D. Primary Care Provider Unavail able Katherin Niño Unavailable [phone] ANGELIQUE PETERSON Unavailable [phone] REASON FOR VISIT Annual ANIMAL HEALTH TECHNICIAN Physical Encounters Encounter Location Date Provider Diagnosis [address] [address] 02/09/2024 ANGELIQUE PETERSON Encounter for gynecological examination [...] Follow Up: 1 Year, Reason: Y early Pcb Design Engineer Exam Provider Name:Katherin May lisa, 10/10/2025 10:20:00 AM[facility] [address] [address], [place], [address], Progress Notes * TEN REHMANB: 6 (59 yo F)Acc No.[id number]:02/09/2024 PROGRESS NOTES Patient:?CORTEZ REHMAN Provider:?ANGELIQUE PETERSON MD :1965???Age:58 Y???Sex:Female D ate:02/09/2024 Address:[address] [place], [place] [id number] Pcp:SHILOH JACKMAN M.D. Subjective: * Chief Complaints: * ???1. Annual ANIMAL HEALTH TECHNICIAN Physical. * HPI: ???Constitutional:? is a yo GxPx with LMP x/x/x who presents for her yearly jawbone puller exam. She has been in state of [...] exercises x days/week by . * ROS:?Annual Pcb Design Engineer Exam ROS:?Bowel habit changes?denies.?Bladder symptoms?denies.?Vaginal discharge, unusual?denies.?Vaginal itch or odor?denies.?weight or appetite changes?denies.?Chest pains, SOB?denies.?depression?denies.?Breast:?Denies?Breast lump.?Denies?Nipple discharge.?Hematology:?Denies?Swollen glands.?Skin:?Patient denies?changing moles.?Psychiatric:?Denies?Anxiety.? * Medical History:? Objective: * Vitals:? * Examination: ???General Examination: ?GENERAL APPEARANCE:?in no acute distress, well developed, well nourished, building consultant present in room.?HEAD:?normocephalic, atraumatic.?NECK/THYROID:?neck supple, full range [...] * Follow Up:?1 Year (Reason: Y early Pcb Design Engineer Exam) * Images: Billing Information: * Visit Code:? [id number] Preventive Care Est Pt. Age 40-64. * Procedure Codes:? * Electronic signature of ANGELIQUE PETERSON MD on 10/29/2024 at 12:28 PM EDT Sign off status: Pending * Provider:?ANGELIQUE PETERSON MD Date:?2023 Generated for Melody cox/Eleazar/eTantoniosmitting on:?10/29/2024 12:28 PM EDT History and Physical Notes * HPI (History of Present Illness) Category Sub-Category Detail Notes Category Not es Constitutional is a yo GxPx with LMP x/x/x who presents for her yearly jawbone puller exam. She has been in state of [...] General Examination GENERAL APPEARANCE: in no ac [place] distress, well developed, well nourished, building consultant present in room HEAD: normocephalic, atrau matic [...]
--- OUTSIDE RECORDS SUMMARY | 2024-10-29 12:29 | XMS_ITS ---
Author Organization Total [facility] Address [address] [place] [address] Care Team Providers Care Consumer Loan Processor Name Role Phone SHILOH JACKMAN M.D. Primary Care Provider Unavail able SalinasLenoreli Unavailable [phone] Allergies No Known Allergies Results Component Value Reference Range Notes Urinalysis Reviewed date:10/07/2024 02:40:33 PM Interpretation: Performing Lab: Notes/Report: PH 5.0 PROTEIN Neg GLUCOSE Neg BLOOD Small REASON FOR VISIT Annual LABORER YARD Physical, Annual LABORER YARD Physical 50-59* Medications Medication SIG (Take, Route, Fr equency, [...] been since you last smoked? 5-10 years Vital Signs Temperature 97.4 degrees Fahrenheit 10/08/19 25 Blood pressure systolic 128 mm Hg 10/08/19 25 Blood pressure diastolic 74 mm Hg 025 Height 68 in 10/07/2024 Weight 197 lbs 10/07/2024 BMI 29.95 kg/m2 10/07/2024 Encounters Encounter Location Date Provider Diagnosis Total [address] [place] [address] 10/07/2024 Katherin Niño Encounter for gynecological examination [...] REPEAT BMD IN 2024. Plan Of Treatment Treatment Notes Assessment Notes Encounter for gynecological examination (general) (routine) without abnormal findings NO PAP TEST, DUE IN 2026. Hormone replacement therapy DISCUSSED BENEFITS AND RISKS OF HRT. SHE WANTS TO CONTINUE. SHE ACCEPTS RISKS. Postmenopausal bleeding DISCUSSED PMB AND ITS COMMON CAUSES. DISCUSSED LOW PROGESTERONE DOSE COMPARED TO HER ESTROGEH DOSE LEADING TO BLEEDING. CONSIDER EMB AND DISCUSSED PROCEDURE AND WHY THIS IS IMPORTANT. CONSIDER TAKING PROVERA OR AYGESTIN 5 MG DAILY FOR 12 DAYS Q 3 MONTHS OR INSERTING MIRENA IUD TO PROTECT THE ENDOMETRIUM. SEE REPRO ENDO RECOMMENDED BY DR WILDER. Encounter for screening mamm ogram for malignant neoplasm of breast REGULAR MAMMOGRAMS AND SBE'S WERE RECOMMENDED. Other specified disorders of bone density and structure, multiple sites DISCUSSED HER LAST BMD RESULTS AND MILD OSTEOPENIA. ADEQUATE CALCIUM AND VIT D. WEIGHT BEARING EXERCISES. REPEAT BMD IN 2024. Pending Test Test Name Order Date MM Digital Mammo Screening 10/07/2024 Next Appt Details Follow Up: 1 Year, Reason: Provider Name:Katherin gonzalez, 10/10/2025 10:20:00 AM, [address] [place] [address], [address], [place], [address], Progress Notes * TEN REHMANB: 6 (59 yo F)Acc No.[id number]:10/07/2024 PROGRESS NOTES Patient:?ORI CORTEZ Appointment Provider:?Katherin gonzalez M.D. :1965???Age:59 Y???Sex:Female D ate:10/07/2024 Address:[address] [place], [place] [address] Pcp:SHILOH JACKMAN M.D. Subjective: * Chief Complaints: * ???Annual LABORER YARD PhysicalAnnual LABORER YARD Physical 50-59* * HPI: ???New/Follow-up Patient Consult:? PAT ENTERED MENOPAUSE IN 2015.? SHE HAD SEVERE POSTMENOPAUSAL SYMPTOMS? LAST YEAR AND WAS REFERRED TO DR WILDER, A CLINICAL RESEARCH ANALYST.? SHE WAS PLACED ON ESTRADIOL PATCH 0.075 MG TWICE WEEKLY AND PROMETRIUM 100 MG DAILY.? SHE COULD NOT TOLERATE PROMETRIUM.? SHE HAD HEADACHES AND FELT EXHAUSTED.? SHE WAS ADVISED TO TAKE PROMETRIUM 100 MG Q OTHER DAY.? SHE HAD VAGINAL BLEEDING AND WAS LATER ADVISED TO DISCONTINUE PROMETRIUM COMPLETELY.? HER BLEEDING SUBSIDED BUT BLED AGAIN WHEN SHE TOOK PROMETRIUM AGAIN FOR A SHORT PERIOD OF TIME RECENTLY. DR WILDER HAS RETIRED AND HE REFERRED HER TO ANOTHER LABORER YARD AT [facility], A DR HOUSE.? THE PAT HAS AN APPT THIS WEEK. HER IS HEMIPLEGIC.? THEY ARE NOT SEXUALLY ACTIVE. SHE UNDERWENT HYSTEROSCOPY, POLYPECTOMY AND D&C IN 2016 WITH BENIGN FINDINGS. HEMATURIA WORK UP DONE IN 2021 WAS NEGATIVE. SHE FELL AND FRACTURED HER HIP IN 2019.? HER LAST BMD IN 2022 SHOWED THE LOWEST T-SCORE TO BE -1.8 AT THE [facility].? FRAX=9.8%/0.4%. HER LAST MAMMOGRAM DONE IN SEP 2024 SHOWED BREASTS ARE NOT DENSE AND WAS NORMAL. HER LAST PAP TEST IN 2023 WAS NEGATIVE AND HPV NEGATIVE. SHE HAD A COLONOSCOPY DONE IN 2015. ???Annual:? Patient presents for annual exam, ages 50-59. ?General Health Maintenance:?Current breast complaints:?no breast pain, mass, discharge, or skin changes ?Urinary problems:?patient reports no urinary health problems or bowel health problems ?Calcium intake:?takes adequate calcium via diet and supplementation ?Significant LABORER YARD problems:?no significant dinkey mechanic symptoms or problems * ROS:?general:?no?chest pain.?no?palpitations.?no?headache.?no?cough.?no?shortness of breath.?no?fever.?no?unexplained weight loss.?no?nausea/vomiting.?no?change in bowel movements.?no blood in stool.?no?genitourinary complaints.?no?skin complaints.? * Medical History:? 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 Control:?none.?Colonoscopy?yes 2015.?Bone Density:?09/20/22 [facility], 10 + years ago.? * OB History:?Total pregnancies?2.?Total living children?2.?NVD?2.? * Surgical History:?Colonoscop y Hysteroscopy, Polypectomy with Truclear, Fractional D&C 07/06/17 * Hospitalization/Major Diagno stic Procedure:?2 Vaginal Deliveries See Surgical Hx * Family History:?Mother: ra bull, breast cancer.?Father: alive, well.? * Social History:?Tobacco Use:?Tobacco Control (Standard)?Tobacco use:?Former smoker ?How long has it been since you last smoked??5-10 years ???Sexual History:?Sexual History?Had sex in the past 12 months (vaginal, oral, or anal)??No ?Have you ever had a Sexually transmitted disease??No ?Details of Sexual History?Are you sexually active??No ???Drugs/Alcohol:?Drugs?Have you used drugs other than those for medical reasons in the past 12 months??No ???Miscellaneous:?Children: yes, 2. ?Exercise: yes, walking, biking. ?Home smoke detector use: yes. ?Living with: spouse. ?Marital status: . ?Natural support system: yes. 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 ?Sexually active: no, monogamous relationship. ???Drug/Alcohol:?AUDIT-C (Standard)?Did you have a drink containing alcohol in the past year??No ?Points?0 ?Interpretation?Negative * Medications:?TakingSertralin e HCl 100 MG Tablet 2 tablets Orally Once a day Simvastatin 80 MG Tablet 1 tablet in the evening Orally Once a day clonazePAM 0.5 MG Tablet 1 tablet Orally Once a day Zetia 10 MG Tablet 1 tablet Orally Once a day Fioricet 50-300-40 MG Capsule 1 capsule as needed Orally every 4 hrs Estradiol 0.075 MG/24HR Patch Twice Weekly Transdermal Taking Sertraline HCl 100 MG Tablet 2 tablets Orally Once a day Taking Simvastatin 80 MG Tablet 1 tablet in the evening Orally Once a day Taking clonazePAM 0.5 MG Tablet 1 tablet Orally Once a day Taking Zetia 10 MG Tablet 1 tablet Orally Once a day Taking Fioricet 50-300-40 MG Capsule 1 capsule as needed Orally every 4 hrs Taking Estradiol 0.075 MG/24HR Patch Twice Weekly Transdermal DiscontinuedOmeprazole 20 MG Capsule Delayed Release 1 capsule 30 minutes before morning meal Orally Once a day Medication List reviewed and reconciled with the patientDiscontinued Omeprazole 20 MG Capsule Delayed Release 1 capsule 30 minutes before morning meal Orally Once a day Medication List reviewed and reconciled with the patient * Allergies:?N.K.D.A.no[Allerg ies Verified] Objective: * Vitals:?Ht: 68 in, Wt:197lbs , BMI:29.95Index, BP:128/74mm Hg, Temp:97.4F. * Examination: ???General Exam: ?CONSTITUTIONAL:?General Appearance:?alert, in no acute distress, normal, well nourished ?NECK/THYROID:?Inspection/Palpation:?normal ?Thyroid:?normal size and shape ?RESPIRATORY:?Auscultation: clear to auscultation bilaterally, Respiratory Effort: normal.?CARDIOVASCULAR:?Auscultation: regular rate and rhythm.?BREAST, Right:?Inspection/Palpation:?no discharge, no masses present, no nipple retraction, no skin changes, no skin dimpling, no tenderness, no lymphadenopathy, no axillary mass, no axillary tenderness ?BREAST, Left:?Inspection/Palpation:?no discharge, no masses present, no nipple retraction, no skin changes, no skin dimpling, no tenderness, no lymphadenopathy, no axillary mass, no axillary tenderness ?GASTROINTESTINAL:?Abdomen:?no masses, nontender, nondistended ?Liver and Spleen:?normal ?Hernias:?no hernias present, no inguinal adenopathy ?MUSCULOSKELETAL:?Inspection/Palpation:?no clubbing, cyanosis, or edema ?SKIN:?Skin:?normal ?NEURO/PSYCH:?Orientation:?time , place, person ?Mood/Affect:?normal?Genitourinary: ?EXTERNAL GENITALIA:?External Genitalia:?normal, no lesions ?VAGINA:?Vagina:?normal appearance, no abnormal discharge, no lesions ?BLADDER:?Bladder:?no mass, nontender ?URETHRA:?Urethra:?no erythema or lesions present ?CERVIX:?Cervix:?no lesions, nontender ?UTERUS:?Uterus:?nontender, normal contour, normal mobility, normal size ?ADNEXA:?Adnexa:?no masses, no tenderness ?ANUS AND PERINEUM:?Anus/Perineum:?visually normal??? Assessment: * Assessment: 1.?Encounter for gynecologic al examination (general) (routine) without abnormal findings - Z01.419???2.?Hormone replacement therapy - Z79.890???3.?Postmenopausal bleeding - N95.0???4.?Encounter for screening mammogram for malignant neoplasm of breast - Z12.31???5.?Other specified disorders of bone density and structure, multiple sites - M85.89??? Plan: * Treatment: ? Value Reference Range ?PH 5.0 * ?PROTEIN Neg * ?GLUCOSE Neg * ?BLOOD Small * D., CHRISTIE 10/07/2024 10:43:23 AM EST > Hx of Hematuria Notes: NO PAP TEST, DUE IN 2026.??2.?Hormone replacement therapy? Notes: DISCUSSED BENEFITS AND RISKS OF HRT. SHE WANTS TO CONTINUE. SHE ACCEPTS RISKS.??3.?Postmenopausal bleeding? Notes: DISCUSSED PMB AND ITS COMMON CAUSES. DISCUSSED LOW PROGESTERONE DOSE COMPARED TO HER ESTROGEH DOSE LEADING TO BLEEDING. CONSIDER EMB AND DISCUSSED PROCEDURE AND WHY THIS IS IMPORTANT. CONSIDER TAKING PROVERA OR AYGESTIN 5 MG DAILY FOR 12 DAYS Q 3 MONTHS OR INSERTING MIRENA IUD TO PROTECT THE ENDOMETRIUM. SEE REPRO ENDO RECOMMENDED BY DR WILDER.??4.?Encounter for screening mammogram for malignant neoplasm of breast?Imaging: MM Digital Mammo Screening Notes: REGULAR MAMMOGRAMS AND SBE'S WERE RECOMMENDED.??5.?Other specified disorders of bone density and structure, multiple sites? Notes: DISCUSSED HER LAST BMD RESULTS AND MILD OSTEOPENIA. ADEQUATE CALCIUM AND VIT D. WEIGHT BEARING EXERCISES. REPEAT BMD IN 2024.?? * Procedure Codes:? * Preventive Medicine:? ??YOUR PREVENTIVE WELLNESS PLAN:?Osteoporosis prevention?Calcium, D, strength training.?Breast Cancer Screening (Mammogram):?annually.?Cervical Cancer Screening (Pap Smear):?q 3 years with HPV screen.?Colorectal Cancer Screening:?q 10 years.? * Follow Up:?1 Year * Images: Billing Information: * Visit Code:? 77597 Preventive Care New Pt. Age 40-64. 95688 Preventive Care Est Pt. Age 40-64. * Procedure Codes:? * Sign off status: Completed true * Appointment Provider:?Katherin Niño M.D. Date:?10/07/2024 Generated for Melody cox/Eleazar/Connoritting on:?10/29/2024 12:28 PM EDT History and Physical Notes * HPI (History of Present Illness) Category Sub-Category Detail Notes Category Not es New/Follow-up Patient Consult PAT ENTERED MENOPAUSE IN 2015. SHE HAD SEVERE POSTMENOPAUSAL SYMPTOMS LAST YEAR AND WAS REFERRED TO DR WILDER, A CLINICAL RESEARCH ANALYST. SHE WAS PLACED ON ESTRADIOL PATCH 0.075 MG TWICE WEEKLY AND PROMETRIUM 100 MG DAILY. SHE COULD NOT TOLERATE PROMETRIUM. SHE HAD HEADACHES AND FELT EXHAUSTED. SHE WAS ADVISED TO TAKE PROMETRIUM 100 MG Q OTHER DAY. SHE HAD VAGINAL BLEEDING AND WAS LATER ADVISED TO DISCONTINUE PROMETRIUM COMPLETELY. HER BLEEDING SUBSIDED BUT BLED AGAIN WHEN SHE TOOK PROMETRIUM AGAIN FOR A SHORT PERIOD OF TIME RECENTLY. DR WILDER HAS RETIRED AND HE REFERRED HER TO ANOTHER LABORER YARD AT [facility], A DR HOUSE. THE PAT HAS AN APPT THIS WEEK. HER IS HEMIPLEGIC. THEY ARE NOT SEXUALLY ACTIVE. SHE UNDERWENT HYSTEROSCOPY, POLYPECTOMY AND D&C IN 2016 WITH BENIGN FINDINGS. HEMATURIA WORK UP DONE IN 2021 WAS NEGATIVE. SHE FELL AND FRACTURED HER HIP IN 2019. HER LAST BMD IN 2022 SHOWED THE LOWEST T-SCORE TO BE -1.8 AT [facility]. FRAX=9.8%/0.4%. HER LAST MAMMOGRAM DONE IN SEP 2024 SHOWED BREASTS ARE NOT DENSE AND WAS NORMAL. HER LAST PAP TEST IN 2023 WAS NEGATIVE AND HPV NEGATIVE. SHE HAD A COLONOSCOPY DONE IN 2015. Annual General Health Maintenance: Current breast complaints:: no breast pain, mass, discharge, or skin changes Urinary problems:: patient r eports no urinary health problems or bowel health problems Calcium intake:: takes adequ ate calcium via diet and supplementation Significant LABORER YARD problems:: n o significant dinkey mechanic symptoms or problems Examination Category Sub-Category Detail Notes Category Not es General Exam CONSTITUTIONAL: General Appearan ce:: alert, in no acute distress, normal, well nourished NECK/THYROID: Thyroid:: normal size and shape Inspection/Palpation:: normal RESPIRATORY: Auscultation: clear to auscultation bilaterally, Respiratory Effort: normal CARDIOVASCULAR: Auscultation: regula r rate and rhythm GASTROINTESTINAL: Hernias:: no hernias present, no inguinal adenopathy Liver and Spleen:: normal Abdomen:: no masses, nontender, nondiste nded MUSCULOSKELETAL: Inspection/Palpation:: no clubb ing, cyanosis, or edema SKIN: Skin:: normal NEURO/PSYCH: Mood/Affect:: normal Orientation:: time , place, person BREAST, Right: Inspection/Palpation :: no discharge, no masses present, no nipple retraction, no skin changes, no skin dimpling, no tenderness, no lymphadenopathy, no axillary mass, no axillary tenderness BREAST, Left: Inspection/Palpation :: no discharge, no masses present, no nipple retraction, no skin changes, no skin dimpling, no tenderness, no lymphadenopathy, no axillary mass, no axillary tenderness Genitourinary EXTERNAL GENITALIA: External Genitalia:: nor mal, no lesions VAGINA: Vagina:: normal appearance, no a bnormal discharge, no lesions BLADDER: Bladder:: no mass, nontender URETHRA: Urethra:: no erythema or lesions present CERVIX: Cervix:: no lesions, nontender UTERUS: Uterus:: nontender, normal conto ur, normal mobility, normal size ADNEXA: Adnexa:: no masses, no tendernes s ANUS AND PERINEUM: Anus/Perineum:: visually norm al
== END 2024-10-29 11:19 | disposition home or self-care (01) ==
LOC: HO.HMCSH 10:24
PROVIDERS: PCP Internal Medicine; Visit Provider Physician Assistant Medical
DX: Z76.89 Persons encountering health services in other specified circumstances (principal); R00.2 Palpitations; H93.19 Tinnitus, unspecified ear; F32.9 Major depressive disorder, single episode, unspecified; R31.29 Other microscopic hematuria; Z86.0100 Personal history of colon polyps, unspecified; E78.5 Hyperlipidemia, unspecified; I10 Essential (primary) hypertension; F41.9 Anxiety disorder, unspecified; E34.9 Endocrine disorder, unspecified; H53.8 Other visual disturbances

== ENCOUNTER → 2024-10-29 10:24 | Outpatient (BNVA) | payer OTHER, SELFPAY | PROVIDERS: PCP Internal Medicine; Visit Provider Physician Assistant Medical | DX: Z76.89 Persons encountering health services in other specified circumstances (principal); R00.2 Palpitations; H93.11 Tinnitus, right ear; F32.9 Major depressive disorder, single episode, unspecified; R31.29 Other microscopic hematuria; E78.5 Hyperlipidemia, unspecified; I10 Essential (primary) hypertension; F41.9 Anxiety disorder, unspecified; E34.9 Endocrine disorder, unspecified; H53.8 Other visual disturbances; Z79.899 Other long term (current) drug therapy; Z86.0100 Personal history of colon polyps, unspecified | CPT/HCPCS: 96127 ==

== ENCOUNTER 2024-10-31 10:54 | Outpatient (REF) | payer OTHER, SELFPAY ==
[2024-10-31 13:05] LABS: MANUAL DIFF FLAG NO
[2024-10-31 13:22] LABS: Basophils Percent Auto 0.5 % (0-2); Eosinophils Absolute Auto 0.1 X10*3/uL (0.0-0.4); Eosinophils Percent Auto 1.9 % (0-4); Hematocrit 37.4 % (37.0-47.0); Hemoglobin 12.4 g/dl (12.0-16.0); Imm Gran Abs Auto 0.01 X10*3/uL (0.00-0.03); Imm Gran Pct Auto 0.1 % (0.0-0.4); Lymphocytes Absolute Auto 1.6 X10*3/uL (1.2-4.9); Lymphocytes Percent Auto 21.8 % (20-40); Mean Corpuscular HGB Conc 33.2 g/dl (31.0-35.0); Mean Corpuscular Hemoglobin 28.4 pg (27.0-33.0); Mean Corpuscular Volume 85.6 fL (80.0-98.0); Mean Platelet Volume 10.4 fL (9.4-12.3); Monocytes Absolute Auto 0.5 X10*3/uL (0.1-1.2); Monocytes Percent Auto 6.5 % (2-11); Neutrophils Percent Auto 69.2 % (45-73); Platelet Count 290 X10*3/uL (160-400); Red Blood Count 4.37 X10*6/uL (4.20-5.50); White Blood Count 7.3 X10*3/uL (4.8-10.8)
[2024-10-31 13:36] LABS: Estimated Average Glucose 114 mg/dL; Hemoglobin A1C 121.6726 umol/L; Hemoglobin A1c % 5.6 % (<6.0); Total Hemoglobin (HGBA1C) 3242.5392 umol/L
[2024-10-31 13:50] LABS: Parathyroid Hormone Intact 160.6 pg/mL (8.7-77.1)
[2024-10-31 14:10] LABS: Erythrocyte Sedimentation Rate 19 MM/HR (0-20)
[2024-10-31 14:21] LABS: Folate 3.9 ng/mL (> or = 4.0); Vitamin B12 246 pg/mL (200-900)
[2024-10-31 18:05] LABS: Alanine Aminotransferase 15 U/L (0-31); Albumin Level 3.8 g/dL (3.5-5.0); Alkaline Phosphatase 85 U/L (39-117); Anion Gap 10 (12-20); Aspartate Amino Transferase 19 U/L (5-31); Bilirubin Direct 0.1 mg/dL (0.0-0.5); Bilirubin Total 0.3 mg/dL (0.0-1.0); Blood Urea Nitrogen 13 mg/dL (9-16); C Reactive Protein 0.32 mg/dL (< or = 0.50); Calcium 8.6 mg/dL (8.4-10.2); Carbon Dioxide 25 mmol/L (22-29); Chloride 111 mmol/L (96-108); Cholesterol 155 mg/dL (<200); Estimated Glomerular Filt Rate > 60; Glucose Fasting 94 mg/dL (60-99); HDL Cholesterol 49 mg/dL (>40); LDL Cholesterol Calculated 84 mg/dL (<100); Magnesium 1.9 mg/dL (1.6-2.6); Phosphorus 2.2 mg/dL (2.7-4.5); Potassium 3.6 mmol/L (3.3-5.1); Sodium 142 mmol/L (135-145); Total Protein 6.9 g/dL (6.5-8.0); Triglycerides 111 mg/dL (<150)
[2024-10-31 18:20] LABS: TSH reflex Free T4 1.35 uIU/mL (0.32-4.0); Vitamin D 25-OH Total 14.3 ng/mL (>30)
[2024-11-04 12:38] LABS: Zinc 59 mcg/dL (60-130)
[2024-11-09 14:08] LABS: Vitamin B1 9 nmol/L (8-30)
== END 2024-10-31 10:55 | disposition home or self-care (01) ==
LOC: HO.HMGCLDS 10:54
PROVIDERS: PCP Physician Assistant Medical; Visit Provider Physician Assistant Medical
DX: Z00.00 Encounter for general adult medical examination without abnormal findings (principal)
CPT/HCPCS: 36415; 80053; 80061; 80076; 82248; 82306; 82607; 82746; 83036; 83735; 83970; 84100; 84146; 84425; 84443; 84630; 85025; 85652; 86140

== ENCOUNTER 2024-11-11 10:55 | Outpatient (REF) | payer OTHER, SELFPAY ==
--- OUTSIDE RECORDS SUMMARY | 2024-11-11 13:04 | XMS_ITS ---
Author Organization [facility] Address [address] [place] [address] Care Team Providers Care Puppet Master Name Role Phone SHILOH JACKMAN M.D. Primary Care Provider Unavail able Katherin Niño Unavailable [phone] ANGELIQUE PETERSON Unavailable [phone] REASON FOR VISIT Annual VTC TECHNICIAN Physical Encounters Encounter Location Date Provider Diagnosis [address] [address] 02/09/2024 ANGELIQUE PETERSON Encounter for gynecological examination [...] Follow Up: 1 Year, Reason: Y early Caramel Cutter Helper Exam Provider Name:Katherin May lisa, 10/10/2025 10:20:00 AM, [facility] [address], [address], [place], [address], Progress Notes * TEN REHMANB: 6 (59 yo F)Acc No.[id number]:02/09/2024 PROGRESS NOTES Patient:?CORTEZ REHMAN Provider:?ANGELIQUE PETERSON MD :1965???Age:58 Y???Sex:Female D ate:02/09/2024 Address:[address] [place], [place] [address] Pcp:SHILOH JACKMAN M.D. Subjective: * Chief Complaints: * ???1. Annual VTC TECHNICIAN Physical. * HPI: ???Constitutional:? is a yo GxPx with LMP x/x/x who presents for her yearly aromatherapist exam. She has been in state of [...] exercises x days/week by . * ROS:?Annual Caramel Cutter Helper Exam ROS:?Bowel habit changes?denies.?Bladder symptoms?denies.?Vaginal discharge, unusual?denies.?Vaginal itch or odor?denies.?weight or appetite changes?denies.?Chest pains, SOB?denies.?depression?denies.?Breast:?Denies?Breast lump.?Denies?Nipple discharge.?Hematology:?Denies?Swollen glands.?Skin:?Patient denies?changing moles.?Psychiatric:?Denies?Anxiety.? * Medical History:? Objective: * Vitals:? 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 83567 Preventive Care Est Pt. Age 40-64. * Procedure Codes:? * Electronic signature of ANGELIQUE PETERSON MD on 11/11/2024 at 01:03 PM EDT Sign off status: Pending * Provider:?ANGELIQUE PETERSON MD Date:?2023 Generated for Melody cox/Eleazar/eTantoniosmitting on:?11/11/2024 01:03 PM EDT History and Physical Notes * HPI (History of Present Illness) Category Sub-Category Detail Notes Category Not es Constitutional is a yo GxPx with LMP x/x/x who presents for her yearly aromatherapist exam. 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
--- OUTSIDE RECORDS SUMMARY | 2024-11-11 13:04 | XMS_ITS ---
Author Organization Total [facility] Address [address] [place] [address] [address] [place] [address] Care Team Providers Care Minibus Driver Name Role Phone AUGUSTINA Burgos, SHILOH Primary Care Provider Unavail Katherin Wilhelm Unavailable [phone] REASON FOR VISIT ULTRA - TAW CK OVARIES Encounters Encounter Location Date Provider Diagnosis [facility] [address] [place] [address] 11/03/2023 Katherin Niño Plan Of Treatment Next Appt Details Provider Name:Katherin gonzalez, 10/10/2025 10:20:00 AM, [address] [place] [address], [address], [place], [address], Progress Notes * TEN REHMANB: 6 (59 yo F)Acc No.[id number]:11/03/2023 PROGRESS NOTES Patient:?CORTEZ REHMAN Appointment Provider:?Katherin gonzalez M.D. :1965???Age:58 Y???Sex:Female D ate:11/03/2023 Address:[address] [place], [place] [id number] Pcp:SHILOH JACKMAN M.D. Subjective: * Chief Complaints: * ???1. ULTRA - TAW CK OVARIES . * Medical History:? Objective: * Vitals:? Assessment: Plan: * Treatment: * Images: Billing Information: * Visit Code:? * Procedure Codes:? * Electronic signature of Debbie Niño MD on 11/11/2024 at 01:03 PM EDT Sign off status: Pending * Appointment Provider:?Katherin Niño M.D. Date:?11/03/2023 Generated for Melody cox/Eleazar/Jerry on:?11/11/2024 01:03 PM EDT
--- OUTSIDE RECORDS SUMMARY | 2024-11-11 13:04 | XMS_ITS | Patient Health Record ---
Author Organization [facility] Address [address] [facility] [address] [place] [address] Care Team Providers Care Chief Of Vital Statistics Name Role Phone SHILOH JACKMAN M.D. Primary Care Provider Unavail able Katherin Niño Unavailable [phone] ANGELIQUE PETERSON Unavailable [phone] Allergies No Known Allergies Results Component Value [...] Status Risk Notes Problem Postmenopausal atrophic vaginitis (56658137) Postmenopausal atrophic vaginitis (N95.2) Active confirmed Problem Postmenopausal bleeding (52784377) Postmenopausal bleeding (N95.0) Active confirmed Problem Morbid obesity (disorder) (892615385) Morbid (severe) obesity due to excess calories (E66.01) Active confirmed Problem Menopause (872550102) Menopausal and female climacteric states (N95.1) Active confirmed Vital Signs Temperature 97.4 degrees Fahrenheit 10/07/2024 Blood pressure diastolic 74 mm Hg 10/07/2024 Height 68 in 10/07/2024 Blood pressure systolic 128 mm Hg 10/07/2024 Weight 197 lbs 10/07/2024 BMI 29.95 kg/m2 10/07/2024 Encounters Encounter Location Date Provider Diagnosis [address] [place] [address] 10/07/2024 Katherin Niño Encounter for gynecological examination [...] Provider Name:Katherin gonzalez, 10/10/2025 10:20:00 AM, [address] [facility], [address], [place], [address], Insurance Providers Payer Name Payer Address Payer Phone Subscriber Number Group Number Insured Name Patient Relationship to Insured Coverage Start Date Coverage End Date [employer] [address] [place] [id number] [phone] [id number] APOORVA REHMAN Spouse - patient is the [...]
--- OUTSIDE RECORDS SUMMARY | 2024-11-11 13:04 | XMS_ITS ---
Author Organization [facility] Address [address] [place] [address] Care Team Providers Care Chief Engineer Research Name Role Phone SHILOH JACKMAN M.D. Primary Care Provider Unavail able SalinasLenoreli Unavailable [phone] Allergies No Known Allergies Results Component Value Reference Range Notes Urinalysis Reviewed date:10/07/2024 02:40:33 PM Interpretation: Performing Lab: Notes/Report: PH 5.0 PROTEIN Neg GLUCOSE Neg BLOOD Small REASON FOR VISIT Annual WELD FITTER Physical, Annual WELD FITTER Physical 50-59* Medications Medication SIG (Take, Route, [...] Encounters Encounter Location Date Provider Diagnosis Total [address] [place] [address] 10/07/2024 Katherin Niño Encounter for gynecological examination [...] Reason: Provider Name:Katherin gonzalez, 10/10/2025 10:20:00 AM, [address] [place] [address], [address], [place], [address], Progress Notes * TEN REHMANB: 6 (59 yo F)Acc No.[id number]:10/07/2024 PROGRESS NOTES Patient:?ORI CORTEZ Appointment Provider:?Katherin gonzalez M.D. :1965???Age:59 Y???Sex:Female D ate:10/07/2024 Address:[address] [place], [place] [id number] Pcp:SHILOH JACKMAN M.D. Subjective: * Chief Complaints: * ???Annual WELD FITTER PhysicalAnnual WELD FITTER Physical 50-59* * HPI: ???New/Follow-up Patient Consult:? PAT ENTERED MENOPAUSE IN 2015.? SHE HAD SEVERE POSTMENOPAUSAL SYMPTOMS? LAST YEAR AND WAS REFERRED TO DR WILDER, A YARN EXAMINER.? SHE WAS PLACED ON ESTRADIOL PATCH 0.075 [...] RETIRED AND HE REFERRED HER TO ANOTHER WELD FITTER AT [facility].? THE [...] adequate calcium via diet and supplementation ?Significant WELD FITTER problems:?no significant business development manager symptoms or problems * ROS:?general:?no?chest pain.?no?palpitations.?no?headache.?no?cough.?no?shortness of breath.?no?fever.?no?unexplained weight loss.?no?nausea/vomiting.?no?change in bowel movements.?no blood in stool.?no?genitourinary complaints.?no?skin complaints.? * Medical History:? 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 Control:?none.?Colonoscopy?yes 2015.?Bone Density:?09/20/22 [place], 10 + [...] * Images: Billing Information: * Visit Code:? 56652 Preventive Care New Pt. Age 40-64. 69321 Preventive Care Est Pt. Age 40-64. * Procedure Codes:? * Sign off status: Completed true * Appointment Provider:?Katherin Niño M.D. Date:?10/07/2024 Generated for Melody cox/Eleazar/Connoritting on:?11/11/2024 01:03 PM EDT History and Physical Notes * HPI (History of Present Illness) Category Sub-Category Detail Notes Category Not es New/Follow-up Patient Consult PAT ENTERED MENOPAUSE IN 2015. SHE HAD SEVERE POSTMENOPAUSAL SYMPTOMS LAST YEAR AND WAS REFERRED TO DR WILDER, A YARN EXAMINER. SHE WAS PLACED ON ESTRADIOL PATCH 0.075 [...] RETIRED AND HE REFERRED HER TO ANOTHER WELD FITTER AT [facility]. THE [...] ate calcium via diet and supplementation Significant WELD FITTER problems:: n o significant business development manager symptoms or problems Examination Category Sub-Category Detail [...]
[2024-11-11 13:48] LABS: Parathyroid Hormone Intact 136.4 pg/mL (8.7-77.1)
[2024-11-11 13:55] LABS: Alanine Aminotransferase 15 U/L (0-31); Albumin Level 3.9 g/dL (3.5-5.0); Alkaline Phosphatase 79 U/L (39-117); Anion Gap 8 (12-20); Aspartate Amino Transferase 22 U/L (5-31); Bilirubin Total 0.3 mg/dL (0.0-1.0); Blood Urea Nitrogen 11 mg/dL (9-16); Calcium 8.8 mg/dL (8.4-10.2); Carbon Dioxide 27 mmol/L (22-29); Chloride 110 mmol/L (96-108); Estimated Glomerular Filt Rate > 60; Glucose Random 92 mg/dL (60-115); Potassium 3.7 mmol/L (3.3-5.1); Sodium 141 mmol/L (135-145)
== END 2024-11-11 10:56 | disposition home or self-care (01) ==
LOC: HO.HMGCLDS 10:55
PROVIDERS: PCP Internal Medicine; Visit Provider Physician Assistant Medical
DX: Z00.00 Encounter for general adult medical examination without abnormal findings (principal)
CPT/HCPCS: 36415; 80053; 83970; 84100

== ENCOUNTER 2025-06-06 10:41 | Outpatient (AMB) | payer OTHER, SELFPAY ==
--- OUTSIDE RECORDS SUMMARY | 2024-02-09 09:00 | XMS_ITS ---
Author Organization [email or web address] Address [address] [place] [id number] Care Team Providers Care Staff Trainer Name Role Phone SHILOH JACKMAN M.D. 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 Encounter Location Date Provider Diagnosis [address] [address] 02/09/2024 ANGELIQUE PETERSON Encounter for gynecological examination (general) (routine) without abnormal findings Z01.419 ; Encounter for screening mammogram for malignant neoplasm of breast Z12.31 and Encounter for screening for infections with a predominantly sexual mode of transmission Z11.3 Assessments Encounter Date Diagnosis (ICD Code) Assessment Notes Treatment Notes Treatment Clinical Notes Section Notes 02/09/2024 Encounter for gynecological examination (general) (routine) without abnormal findings (ICD-10 - Z01.419) During the visit, the following areas of concern were addressed: Discussed cervical cancer screening with either cytology alone every 3 years or high risk HPV co-testing every 5 years as per ASCCP guidelines. Advised continued annual pelvic exams. Patient encouraged to increase her level of exercise. SBE technique encouraged/tau ght. Patient reminded when annual mammogram is due. Patient encouraged to keep colon screening up to date. 02/09/2024 Encounter for screening mammogram for malignant neoplasm of breast (ICD-10 - Z12.31) 02/09/2024 Encounter for screening for infections with a predominantly sexual mode of transmission (ICD-10 - Z11.3) Plan Of Treatment Treatment Notes Assessment Notes Encounter for gynecological examination (general) (routine) without abnormal findings During the visit, the following areas of concern were addressed: Discussed cervical cancer screening with either cytology alone every 3 years or high risk HPV co-testing every 5 years as per ASCCP guidelines. Advised continued annual pelvic exams. Patient encouraged to increase her level of exercise. SBE technique encouraged/taught. Patient reminded when annual mammogram is due. Patient encouraged to keep colon screening up to date. 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 Subjective: * Chief Complaints: * 1 . 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 She has been in state of health since her last exam. She has the following concerns:. Relationship status: for years. She is sexually active. Sexual partner(s): male. She does wish to have STI testing. Menses: Contraception: She does report vaginal dryness. She does have hot flashes/night sweats. The patient has had an abnormal pap smear within the last 5 years. Her most recent pap smear was . She has been diagnosed with breast cancer. She does have a family history of breast cancer. Her last mammogram was . She does have a family history of colon cancer. She a has had a colonoscopy. The last colonoscopy was . The patient does exercise. She exercises x days/week by . * ROS: A nnual Hatchery Manager Exam ROS: Bowel habit changes d enies. B ladder symptoms d enies. V aginal discharge, unusual d enies. V aginal itch or odor d enies. w eight or appetite changes d enies. C hest pains, SOB d enies. d epression d enies.? B reast: Denies B reast lump. D enies N ipple discharge.? H ematology: Denies S wollen glands. S kin: Patient denies c hanging moles. P sychiatric: Denies A nxiety. * Medical History: Objective: * Vitals: * Examination: G eneral Examination: GENERAL APPEARANCE: i n no acute distress, well developed, well nourished, medicine technologist present in room. HEAD: n ormocephalic, atraumatic. NECK/THYROID: n stefano supple, full range of motion, thyroid normal. LYMPH NODES: n o axillary or supraclavicular adenopathy.? SKIN: normal, good turgor, no rashes, no suspicious lesions. BREASTS: normal, no dimpling, no discharge, no drainage, no masses palpable bilaterally, nontender. ABDOMEN: soft, non-tender, non distended without masses or hepatosplenomegay. RECTAL: normal tone, no masses palpable. BACK: no costovertebral angle tenderness. FEMALE GENITOURINARY: V ulva without lesions or masses, vagina pink without abnormal discharge, lesions or masses, cervix appears normal and is not tender to palpation, uterus is normal size, mobile, nontender and anteverted, ovaries are not palpable. NEUROLOGIC: alert and oriented, gait normal. PSYCH: alert, oriented, cognitive function intact, cooperative with exam, good eye contact, mood/affect full range, speech clear. Assessment: * Assessment: 1. E ncounter for gynecological examination (general) (routine) without abnormal findings - Z01.419 (Primary) 2 . E ncounter for screening mammogram for malignant neoplasm of breast - Z12.31 3 . E ncounter for screening for infections with a predominantly sexual mode of transmission - Z11.3 Plan: * Treatment: 2. E ncounter for screening mammogram for malignant neoplasm of breast I maging: MM Digital Screening Mammogram 3D * Follow Up: 1 Year (Reason: Yearly Hatchery Manager Exam) * Images: Billing Information: * Visit Code: [id number] Preventive Care Est Pt. Age 40-64. 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 She has been in state of health since her last exam. She has the following concerns:. Relationship status: for years. She is sexually active. Sexual partner(s): male. She does wish to have STI testing. Menses: Contraception: She does report vaginal dryness. She does have hot flashes/night sweats. The patient has had an abnormal pap smear within the last 5 years. Her most recent pap smear was . She has been diagnosed with breast cancer. She does have a family history of breast cancer. Her last mammogram was . She does have a family history of colon cancer. She a has had a colonoscopy. The last colonoscopy was . The patient does exercise. She exercises x days/week by . Examination Category Sub-Category Detail Notes Category Not es General Examination GENERAL APPEARANCE: in no ac [place] distress, well developed, well nourished, medicine technologist present in room HEAD: normocephalic, atrau matic NECK/THYROID: neck supple, full ra nge of motion, thyroid normal ABDOMEN: soft, non-tender, no n distended without masses or hepatosplenomegay NEUROLOGIC: alert and oriented, gait normal SKIN: normal, good turgor, no rashes, no suspicious lesions BACK: no costovertebral an gle tenderness BREASTS: normal, no dimpling, no discharge, no drainage, no masses palpable bilaterally, nontender LYMPH NODES: no axillary or supra clavicular adenopathy RECTAL: normal tone, no mass es palpable PSYCH: alert, oriented, cog nitive function intact, cooperative with exam, good eye contact, mood/affect full range, speech clear FEMALE GENITOURINARY: Vulva without lesi ons or masses, vagina pink without abnormal discharge, lesions or masses, cervix appears normal and is not tender to palpation, uterus is normal size, mobile, nontender and anteverted, ovaries are not palpable
[2025-06-06 11:10] VITALS: BP 125/60; PULSE 84; RESP 14; TEMP 36.6; O2SAT 99; BMI 29.8
--- NOTE | 2025-06-06 11:10 | A.OFFPC_ITS ---
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: No Accompanied by: Self / Same As Patient Allergies No Known Allergies Allergy (Verified 06/06/25 11:37) Medication List - Last Reconciled 06/06/25 by Elvia Morgan PA-C tsfphkodmj-zpwwbueomvndm-cbwc 50-325-40 mg 1 tab PO TID PRN clonazepam 0.5 mg PO BID PRN estradiol 1 patch transdermal 2XW ezetimibe 10 mg PO DAILY ibuprofen (Motrin IB) 200 mg PO Q6H PRN sertraline 200 mg PO DAILY simvastatin 80 mg PO DAILY Tobacco use date assessed: 06/06/25 Dental Screening Dental Screen Date: 06/06/25 Did you have a dental visit in the last 12 months?: Yes Did you have a dental problem in the last 6 months where you did not have access to dental care?: No Was dental information given to patient?: Patient has dentist HPI Physical HPI Details The patient is a 60-year-old female presenting for a physical examination and medication refills. The patient reports migraines, for which she takes Fioricet approximately three times per week. She has declined a referral to Neurology due to xjo-sx-zffjnz costs. Two days prior, the patient woke at 5 a.m. with intense abdominal pain, prompting a visit to an urgent care center yesterday. She was diagnosed with constipation, acid reflux, and allergies. The severe abdominal pain, localized around the umbilicus, has since resolved, but she still experiences discomfort, bloating, and borborygmi. For a week prior to the abdominal pain, she had burning pelvic pain on both sides, which continues intermittently. She reports not having regular bowel movements, a change from her usual pattern, and has had only a very small bowel movement since the acute pain episode. The patient has a chronic history of hematuria, confirmed during her recent urgent care visit with a +2 result on urinalysis. She has had blood in her urine for the past five years and has undergone a full urologic evaluation, including cystoscopy, which attributed the bleeding to menopause and dryness. An abdominal ultrasound in 2022 showed a normal liver, gallbladder without stones, kidneys, spleen, pancreas, and abdominal aorta. Past lab work from March 2023 showed a hemoglobin A1c of 5.6%, indicating prediabetes, as well as low phosphorus, low vitamin D, low folate, and a slightly high parathyroid hormone level. The patient was prescribed iron but stopped taking it due to constipation, and she did not take a prescribed high- dose vitamin D3 (50,000 units). The patient reports having blurred vision in both eyes for over a year and has an ophthalmology appointment scheduled for next month. She also experiences intermittent dizziness and fatigue. Regarding health maintenance, her last colonoscopy was nearly 10 years ago, and a referral has been provided. She undergoes yearly mammograms and Pap smears. Her last bone density scan was two to three years ago and was normal, without osteopenia or osteoporosis. The patient has not had a hysterectomy. Social History - Financial concerns: Patient reports th at ost-tp-pkglzm costs are a barrier to seeking specialist care, such as a neurology consultation, and undergoing diagnostic imaging like a CT scan. [facility], [facility] Medical History (Updated 06/06/25 @ 13:15 by Elvia Morgan PA-C) Healthcare maintenance Vertigo Abdominal pain Constipation Annual physical exam Diastolic dysfunction Heart murmur Migraine headache Low folate Elevated parathyroid hormone Blurry vision Hormone imbalance Establishing care with new doctor, encounter for Hyperlipidemia History of colon polyps Tinnitus Palpitations Microscopic hematuria UTI (urinary tract infection) Depression Anxiety High cholesterol HTN (hypertension) Family History Father No problems noted. Mother Diabetes BP (high blood pressure) History of breast cancer High cholesterol Social History Housing: House Alcohol intake: current Alcohol intake frequency: does not drink Patient Tobacco Use Status: Former Tobacco user service: No Current occupational status: unemployed Cognitive needs: No Hearing needs: No Vision needs: Yes (reading glasses) Questionnaire PHQ-9 Over the last 2 weeks, how often have you been bothered by any of the following problems? 1. Little interest or pleasure in doing things: several days 2. Feeling down, depressed, or hopeless: several days 3. Trouble falling or staying asleep, or sleeping too much: not at all 4. Feeling tired or having little energy: nearly every day 5. Poor appetite or overeating: not at all 6. Feeling bad about yourself - or that you are a failure or have let yourself or your family down: nearly every day 7. Trouble concentrating on things, such as reading the newspaper or watching television: several days 8. Moving or speaking so slowly that other people could have noticed. Or the opposite - being so fidgety or restless that you have been moving around a lot more than usual: not at all 9. Thoughts that you would be better off or of hurting yourself in some way: not at all Total score: 9 Depression Screening Interpretation: Positive Depression Screening Follow-up: Existing condition and In treatment Depression Screening Done: Yes 32421 - PHQ-9 Billing: Yes Source: Developed by Drs. Luis Carvalho, Lauren Mohan, Gonzalez Edwards and colleagues, with an educational prashanth from [employer]. Thrive Questionnaire Date Thrive assessed: 10/29/24 I am a: Patient What is your living situation today?: I have a steady place to live Within the past 12 months, did the food you bought not last and you didn't have the money to get more?: Never true Within the past 12 months, did you worry whether your food would run out before you got money to buy more?: Never true Do you have trouble paying for medicines?: No Do you have trouble getting transportation to medical appointments?: No Do you have trouble paying your heating and electricity bill?: No Do you have trouble taking care of your child, family member or friend?: No Do you have trouble with day-to-day activities such as bathing, preparing meals, shopping, managing finances, etc.?: No Are you currently unemployed and looking for a job?: No (retired) Are you interested in more education?: No Currently or been in a relationship where the following occur: No concerns reported THRIVE Score: 0 AUDIT C Alcohol Use Questionnaire (AUDIT-C) 1. How often do you have a drink containing alcohol?: Never 3. How often do you have six or more drinks on one occasion?: Never Total Score: 0 Score Reviewed/Action Taken: No MARILYN-7 AMB Questionnaire MARILYN-7 Date MARILYN - 7 assessed: 10/29/24 Feeling nervous, anxious, or on edge: 1 = Several days Not being able to stop or control worryin = Nearly every day Worrying too much about different things: 3 = Nearly every day Trouble relaxin = Nearly every day Being so restless that it is hard to sit still: 0 = Not at all Becoming easily annoyed or irritable: 1 = Several days Feeling afraid as if something awful might happen: 1 = Several days Total MARILYN-7 score (0-4 normal; 5-9 mild; 10-14 moderate; 15-21 severe): 12 Source: Developed by Drs. Luis Carvalho, Lauren oMhan, Gonzalez Edwards and colleagues, with an educational prashanth from [employer]. MARILYN-7 Assessment Billing MARILYN-7 Assessment Tool: MARILYN-7 Assessment 97332 Review of Systems Const Details: - General: Reports intermittent fatigue. - Neurological: Reports migraines approximately 3 times per week. Reports dizziness. - Eyes: Reports blurred vision in both eyes for over a year. - Cardiovascular: Denies chest pain or shortness of breath with activity. - Gastrointestinal: Reports a history of intense abdominal pain that has resolved. Reports current abdominal discomfort, borborygmi, bloating, and constipation. Reports intermittent burning pelvic pain. - Genitourinary: Reports a five-year history of blood in urine. All systems reviewed & are unremarkable except as noted in HPI and below Physical exam (Primary Care) Vital Signs: Last Vital Signs Temp 97.8 F 06/06/25 11:10 Pulse 84 06/06/25 11:10 Resp 14 06/06/25 11:10 BP 125/60 06/06/25 11:10 Pulse Ox 99 06/06/25 11:10 Oxygen Delivery Method Room Air 06/06/25 11:10 Care Plan Goal for BP management: <140/90 at Goal BMI result Body Mass Index 29.8 BMI Assessment/Plan discussion: High BMI High, discussed plan: lifestyle, weight reduction, dietary, physical activity, alcohol moderation and other Tobacco/Smoking Status: Tobacco use Status Tobacco use date assessed 06/06/25 06/06/25 11:13 Patient Tobacco Use Status Former Tobacco user 06/06/25 11:31 PHQ-9: PHQ-9 Score PHQ-9: Total score 9 06/06/25 11:13 Depression Screening Interpretation: Positive Depression Screening Follow-up: Existing condition and In treatment Thrive Assessment: Date of Thrive Assessment Date Thrive assessed 10/29/24 06/06/25 11:13 Currently or been in a relationship where the following occur: No concerns reported Const Other: Appearance: Alert. Oriented X3. No acute distress. Head: Normal external exam. Normocephalic. Atraumatic. Eyes: Pupils are equal, round, and reactive to light. Extraocular movements intact. Conjunctiva and sclera normal. Eyelids normal. Ears: External auditory canal normal. Tympanic membranes normal. No fluid noted. Throat: Pharynx normal. Uvula midline. Moist mucous membranes. Signs of allergies noted. Neck: Normal inspection. Neck supple. Full range of motion. No adenopathy. Thyroid Normal. No meningeal signs. No neck mass noted. Cardiovascular: Normal heart rate and rhythm. Heart sound normal. No murmurs noted. Pulses normal throughout. Slight diastolic dysfunction suspected. Respiratory: No respiratory distress. Painless inspiration. Breath sounds normal. No wheezes/rales/rhonchi noted. Chest nontender. No accessory muscle usage noted or decreased air movement noted. Abdomen: Soft and nontender. Bowel sounds normal in all 4 quadrants. No distention noted. No organomegaly noted. No visible injury noted. Patient reports recent intense abdominal pain, now resolved. Back: No costovertebral angle tenderness. Full range of motion noted. Skin: Skin warm and dry. Normal skin color. Normal skin turgor. No rashes/lesions/lacerations noted. Extremities: No lower extremity edema. Extremities exhibit normal range of motion. Extremities nontender. Neuro: Oriented X 3. No motor deficit. No sensory deficit. Reflexes normal. Reports dizziness and blurred vision. Results Reviewed Results Reviewed: - Previous Abdominal Ultrasound (2022): Negative for abnormalities of the liver, gallbladder, kidneys, spleen, pancreas, and abdominal aorta. - Lab results (March 2023): - Hemoglobin A1c: 5.6% (prediabetic range). - Phosphorus: Low (2.2 and 2.0). - Vitamin D: Low. - Folate: Low. - Parathyroid Hormone (PTH): Slightly high. - Urinalysis (recent, at urgent care): Positive for blood (+2). Coding Level of Care Code Est Pt Level 4 (20738) Est Pt Prev Care 40-64y(51886) Diagnoses Annual physical exam Z00.00 Migraine headache G43.909 Constipation K59.00 Abdominal pain R10.9 Vertigo R42 Hyperlipidemia E78.5 Healthcare maintenance Z00.00 Heart murmur R01.1 Additional Codes MARILYN-7 Assessment Billing - MARILYN-7 Assessment Tool: MARILYN-7 Assessment 42203 ([id number]) PHQ-9 - 72196 - PHQ-9 Billing: Yes ([id number]) Time Spent (min) 60 Assessment & Plan Assessment & Plan (1) Annual physical exam: Code(s): Z00.00 - Encounter for general adult medical examination without abnormal findings Category: Medical (2) Migraine headache: Comment: Currently only on Fioricet Code(s): G43.909 - Migraine, unspecified, not intractable, without status migrainosus Category: Medical Plan: The patient uses Fioricet approximately three times per week, which exceeds the recommended usage of no more than two days per week. This overuse raises concern for medication overuse headaches and dependency. Due to financial constraints, the patient declined a referral to Neurology. A 30-day supply of Fioricet with 3 refills has been prescribed. To help prevent migraines and reduce Fioricet use, the patient has agreed to start prophylactic treatment with magnesium and Coenzyme Q10, vitamin B2 and topiramate. (3) Constipation: Code(s): K59.00 - Constipation, unspecified Category: Medical Plan: The patient recently presented to urgent care with severe abdominal pain and was diagnosed with constipation. Although the severe pain has subsided, she mildred nues to have discomfort, bloating, and infrequent bowel movements. She has started taking fiber. The plan is to add yjyz-zap-eezcpqa Colace and MiraLAX, taken twice daily for one week, and then taper to once daily or every other day to re-establish regular bowel movements. The patient declined imaging at this time due to cost. (4) Abdominal pain: Code(s): R10.9 - Unspecified abdominal pain Category: Medical Plan: The patient recently presented to urgent care with severe abdominal pain and was diagnosed with constipation. Although the severe pain has subsided, she continues to have discomfort, bloating, and infrequent bowel movements. She has started taking fiber. The plan is to add daxv-qpa-hxortjg Colace and MiraLAX, taken twice daily for one week, and then taper to once daily or every other day to re-establish regular bowel movements. The patient declined imaging at this time due to cost. (5) Vertigo: Code(s): R42 - Dizziness and giddiness Category: Medical Plan: The patient reports dizziness, which an urgent care provider attributed to allergies and fluid in the ears. Current physical exam does not show fluid in the ears but does reveal an irritated and inflamed nasal septum, consistent with allergies. The patient has started a generic qmap-iha-bccfdvl allergy medication. Meclizine will be prescribed for dizziness as it has been effective for her in the past. (6) Hyperlipidemia: Code(s): E78.5 - Hyperlipidemia, unspecified Category: Medical Plan: The patient requested a refill for simvastatin. A 90-day supply with three refills has been sent to the pharmacy. (7) Healthcare maintenance: Code(s): Z00.00 - Encounter for general adult medical examination without abnormal findings Category: Medical Plan: The patient's health screenings are mostly up to date; she has a scheduled mammogram and undergoes yearly Pap smears. A referral for a colonoscopy has previously been provided, as her last one was nearly 10 years ago. A follow-up visit is scheduled for six months. (8) Heart murmur: Code(s): R01.1 - Cardiac murmur, unspecified Category: Medical Plan: A heart murmur was auscultated on exam, and the patient reports a low diastolic blood pressure reading of 60 on her home monitor. These findings are suspicious for diastolic dysfunction, which could potentially explain her symptoms of dizziness and fatigue. The patient has agreed to an echocardiogram for further evaluation. She has been taken off blood pressure medication. Plan Plan Patient was informed and verbally consented to the use of an ambient scribe for clinic note documentation during this visit. 1. Migraine The patient uses Fioricet approximately three times per week, which exceeds the recommended usage of no more than two days per week. This overuse raises concern for medication overuse headaches and dependency. Due to financial constraints, the patient declined a referral to Neurology. A 30-day supply of Fioricet with 3 refills has been prescribed. To help prevent migraines and reduce Fioricet use, the patient has agreed to start prophylactic treatment with magnesium and Coenzyme Q10. 2. Constipation And Abdominal Pain The patient recently presented to urgent care with severe abdominal pain and was diagnosed with constipation. Although the severe pain has subsided, she continues to have discomfort, bloating, and infrequent bowel movements. She has started taking fiber. The plan is to add jfgg-pwq-tflsmvp Colace and MiraLAX, taken twice daily for one week, and then taper to once daily or every other day to re-establish regular bowel movements. The patient declined imaging at this time due to cost. 3. Dizziness And Allergies The patient reports dizziness, which an urgent care provider attributed to allergies and fluid in the ears. Current physical exam does not show fluid in the ears but does reveal an irritated and inflamed nasal septum, consistent with allergies. The patient has started a generic lixl-wso-jsmploe allergy medi cation. Meclizine will be prescribed for dizziness as it has been effective for her in the past. 4. Hyperlipidemia The patient requested a refill for simvastatin. A 90-day supply with three refills has been sent to the pharmacy. 5. Heart Murmur A heart murmur was auscultated on exam, and the patient reports a low diastolic blood pressure reading of 60 on her home monitor. These findings are suspicious for diastolic dysfunction, which could potentially explain her symptoms of dizziness and fatigue. The patient has agreed to an echocardiogram for further evaluation. She has been taken off blood pressure medication. 6. Health Maintenance The patient's health screenings are mostly up to date; she has a scheduled mammogram and undergoes yearly Pap smears. A referral for a colonoscopy has previously been provided, as her last one was nearly 10 years ago. A follow-up visit is scheduled for six months. I discussed with the patient my concerns about her frequent use of Fioricet (3 times per week), explaining the risk of developing medication overuse headaches and dependency. Although I recommended a neurology consultation, she declined due to kqq-iw-dszphz costs. We agreed to try a prophylactic regimen of magnesium and Coenzyme Q10 to reduce headache frequency and her reliance on Fioricet, which I refilled in the interim. Regarding her abdominal pain and constipation, I explained that this can be a common issue with aging as the GI system slows down. I recommended she try a combination of a stool softener (Colace) and a laxative (MiraLAX) in addition to the fiber she has already started. I noted the auscultation of a heart murmur and the patient's report of a low diastolic blood pressure reading at home (60). I explained that this could ind icate diastolic dysfunction and may be contributing to her dizziness and fatigue. She understood the importance of investigating this further and consented to an echocardiogram. I informed her that if the results are abnormal, I will call her and refer her to cardiology for management. I provided her with stroke-like precaution instructions, advising her to go to the emergency room for any worsening dizziness, new visual changes, facial droop, confusion, or weakness/numbness in an arm. We scheduled a follow-up appointment in six months. Orders: Orders CA echo transthoracic complete Today I51.89 - Other ill-defined heart diseases, R01.1 - Cardiac murmur, unspecified Medications: New riboflavin (vitamin B2) 400 mg PO DAILY 90 tabs 3RF Migraine headaches coenzyme Q10 400 mg PO DAILY 90 caps 3RF Migraine headaches meclizine 50 mg PO DAILY 90 tabs 3RF magnesium oxide May hold for loose stools 400 mg PO BEDTIME 90 tabs 3RF Migraine headaches topiramate 25 mg PO DAILY 90 tabs 3RF Migraine headaches Refilled oxbwlfoksm-lkqcxmaybsmed-ayir 50-325-40 mg 1 tab PO TID PRN 30 tabs 0RF headache simvastatin 80 mg PO DAILY 90 tabs 3RF xbmltauhjc-hxsoomsaorrrs-rwdb 50-325-40 mg 1 tab PO TID PRN 30 tabs 3RF headache Patient Instructions: - For migraines, try to use Fioricet no more than two days per week to avoid making headaches worse. - I have prescribed Magnesium and Coenzyme Q10 for you to take to help prevent headaches. - For constipation, continue taking fiber. Also, I recommend you purchase lulr-uwf-aqsxbbp Colace and MiraLAX. Take both twice a day for one week, then reduce to once a day or every other day to help you have regular bowel movements. - I have refilled your Fioricet and Simvastatin medications. - I have prescribed Meclizine for your dizziness. Please take it as needed. - I have ordered an echocardiogram (ultrasound of your heart) to investigate the heart murmur we found. The imaging center will call you within a month to schedule. - Please go to the nearest Emergency Room if you experience worsening dizziness, vision changes that are worse than usual, facial drooping, confusion, or any new numbness or weakness in your arms or legs. - Please follow up in the office in six months.
--- OUTSIDE RECORDS SUMMARY | 2025-06-06 12:07 | XMS_ITS | Patient Health Record ---
Author Organization [facility] [address] Address [address] [place] [address] Care Team Providers Care Er Registrar Name Role Phone Brad Mead MD Primary Care Provider Unavailab Marcel Muro Unavailable [phone] Reason For Referral No Information Medications Medication SIG (Take, Route, Fr equency, Duration) Notes Start Date End Date Status Zetia 10 MG 1 tablet Orally Once a day Active Fioricet Active Simvastatin 80 MG 1 tablet in the even ing Orally Once a day Active Zoloft 100 MG 1 tablet Orally Once a day Active clonazePAM 0.5 MG 1 tablet Orally Twice a day Active Social History Tobacco Use: Social History Observation Description Date Details (start date - stop date) Former Smoker NA - 09/23/2016 Tobacco Use/Smoking Question Answer Notes Are you a: former smoker When did you stop smoking? 09/23/2016 Additional Findings: Tobacco Non-User Current no n-smoker Alcohol Screen Question Answer Notes Did you have a drink containing alcohol in the p ast year? No Points 0 Interpretation Negative Problems Problem Type SNOMED Code ICD Code Onset Dates Problem Status W/U Status Risk Notes Problem Plantar fascial fibromatosis (95106204) Plantar fascial fibromatosis (M72.2) Active confirmed Problem Achilles bursitis (454130636) Achilles tendinitis, right leg (M76.61) Active confirmed Problem Achilles bursitis (489362415) Achilles tendinitis, left leg (M76.62) Active confirmed Plan Of Treatment No Information Insurance Providers Payer Name Payer Address Payer Phone Subscriber Number Group Number Insured Name Patient Relationship to Insured Coverage Start Date Coverage End Date [facility] [address] [place] [phone] [id number] Wanda Navarro Self - patient is the insured Medical (General) History Medical History History ICD Code Anxiety Back,Hip,and Knee pain Cholesterol Depression Headaches Sciatica Chicken pox
--- OUTSIDE RECORDS SUMMARY | 2025-06-06 12:07 | XMS_ITS | Patient Health Record ---
Author Organization [facility] Address [address] [place] [address] Care Team Providers Care Academic Advisement Director Name Role Phone SHILOH JACKMAN M.D. Primary Care Provider Unavail able Katherin Niño Unavailable [phone] Allergies No Known Allergies Results Component Value [...] Once a day Active Estradiol 0.075 MG/24HR Transdermal; Dur ation: 84 Days Active Social History Tobacco Use: [...] Status Risk Notes Problem Postmenopausal atrophic vaginitis (96158773) Postmenopausal atrophic vaginitis (N95.2) Active confirmed Problem Postmenopausal bleeding (25504474) Postmenopausal bleeding (N95.0) Active confirmed Problem Morbid obesity (disorder) (216222385) Morbid (severe) obesity due to excess calories (E66.01) Active confirmed Problem Menopause (058112715) Menopausal and female climacteric states (N95.1) Active confirmed Vital Signs Temperature 97.4 degrees Fahrenheit 10/07/2024 Blood pressure diastolic 74 mm Hg 10/07/2024 Height 68 in 10/07/2024 Blood pressure systolic 128 mm Hg 10/07/2024 Weight 197 lbs 10/07/2024 BMI 29.95 kg/m2 10/07/2024 Encounters Encounter Location Date Provider Diagnosis [facility] [address] [place] [address] 10/07/2024 Katherin Niño Encounter for gynecological examination [...] W/TRANSVAGINAL 2018 Next Appt Details Provider Name:Katherin Brown Lalo gonzalez, 10/10/2025 10:20:00 AM, [address] [facility], [address], [place], [address], Insurance Providers Payer Name Payer Address Payer Phone Subscriber Number Group Number Insured Name Patient Relationship to Insured Coverage Start Date Coverage End Date [employer] [address] SHEYLA BROWN [id number] [phone] [id number] APOORVA REHMAN Spouse - patient is the [...]
--- OUTSIDE RECORDS SUMMARY | 2025-06-06 12:07 | XMS_ITS | Clinical Summary ---
Author Organization [facility] Address [address] [place] [id number] Phone Care Team Providers Care Estate Planning Director Name Role Phone Brad Mead MD Primary Care Provider [phone] Allergies No known active allergies Medications sertraline (ZOLOFT) 100 MG tablet 100 mg. Twice per day 1 Active simvastatin (ZOCOR) 80 MG tablet Take 1 tablet by mouth every morning. 5 Active ezetimibe (ZETIA) 10 mg tablet 10 mg. 5 Active clonazePAM (KLONOPIN) 0.5 MG tablet 0.5 mg. 1 Active butalbital-acet aminophen-caffe ine (FIORICET, ESGIC) 50-325-40 mg per tablet 1 tablet. 5 Active lisinopril (PRINIVIL,ZESTR IL) 5 MG tablet Take by mouth. 5 Active estradioL (VIVELLE-DOT) 0.075 mg/24 hrIndications:M enopause Place 1 patch onto the skin 2 (two) times a week. Pt requesting Brand Name MYLAN 24 patch 2 5 Active Hospital, Clinic, or Other Facility Administered Medication Ordered Dose Route Frequency Start Date End Date Status levonorgestreL (MIRENA) 21 mcg/24hr (up to 8 yrs) 52 mg intrauterine device 1 each 1 each Utrn Every 5 years 10/15/2024 Active Active Problems Problem Noted Date Diagnosed Date Menopause 10/03/2013 Overview (10/08/2024): Depression and anxiety Assessment & Plan (10/08/2024 12:30 PM EST): Menopause age 51, never used hormones until: May [address] Jha, started estradiol 0.075 due to increase in anxiety/depression x1 month, helped. Started oral progesterone 100mg daily, after 3 weeks began having bad headaches and exhaustion After 6 weeks of progesterone, decreased to 100mg every other day, then started bleeding after a week on this lower dose. Bleeding not heavy, on and off in Sep 2024 Currently now a few weeks with estradiol patch only Headaches did resolve when she stopped the progesterone She still has breakthrough anxiety but she believes that it is overall better than prior to starting She also takes zoloft 100mg BID (increase from 150 daily around the same time), also using klonopin 0.5mg before bed x20 years. Has a psychiatrist We discuss the reason for progesterone to prevent endometrial hyperplasia/bleeding We discuss that a flare of anxiety occurring 8 years after periods stopped should not be assumed to be related to menopause or hormones. Her improvement may be due to estrogen but also may be due to other factors including increase in zoloft dose. As she did not tolerate the progesterone oral even at a low dose, my first suggestion is to first see if the estrogen is even needed, and even helping her anxiety, or general well being. I advise her to cut the patch in half for a week, then a quarter for a week, then stop. See me after a month off of the estrogen, and we can discuss if she is getting any benefit (in terms of anxiety/quality of life) from the estrogen She mentions a few times her low hormone levels on lab work she had with Dr jha - I explain that this is expected after menopause and does not signify need for treatment in itself, but rather we will base decisions primarily on symptoms If we determine that she would like to continue the estrogen after this, then we can discuss options for progestins such as other oral progestins, or an IUD (which she is considering going for) Anxiety 11/01/1999 Family History Medical History Relation Comments Breast cancer Mother Diabetes type II Mother Hypertension Mother Relation Status Comments Mother Social History Tobacco Use Types Packs/Day Years Used Date Smoking Tobacco: Former Cigarettes Smokeless Tobacco: Never Alcohol Use Standard Drinks/Week Comments Not Currently 0 (1 standard drink = 0.6 oz pur e alcohol) Education Answer Date Recorded Are you interested in more education? Not on walt e 09/06/2024 Are you concerned about learning? Not on file 09/06/2024 No 09/06/2024 No 09/06/2024 Digital Access Answer Date Recorded No 09/06/2024 No 09/06/2024 Reliable internet access at home? Not on file 09/06/2024 Device with a working camera? Not on file Comments No Sex and Gender Information Value Date Recorded Sex Assigned at Not on file Legal Sex Female 12:25 PM EST Gender Identity Not on file Sexual Orientation Not on file Last Filed Vital Signs Vital Sign Reading Time Taken Comments Blood Pressure 120/78 11/05/2024 2:34 PM EDT Pulse - - Temperature - - Respiratory Rate - - Oxygen Saturation - - Inhaled Oxygen Concentration - - Weight 89.4 kg (197 lb) 11/05/2024 2:34 PM EDT Height 171.5 cm (5' 7.5 ) 11/05/2024 2:34 PM EDT Body Mass Index 30.4 11/05/2024 2:34 PM EDT Plan of Treatment Health Maintenance Due Date Last Done Comments CREATININE LEVEL 1966 LIPID PANEL 1966 POTASSIUM LEVEL 1966 DEPRESSION SCREENING 1978 SMOKING Hx and SMOKELESS TOBACCO SCREENING 1979 HEPATITIS C SCREENING 1984 HIV ONE-TIME SCREENING (18-65 YEARS) 1984 SCREENING FOR DIABETES 2001 MAMMOGRAM 2006 COLOGUARD 2011 COLONOSCOPY 2011 COLORECTAL CANCER SCREENING 2011 FIT TEST 2011 FOBT 2011 SIGMOIDOSCOPY 2011 VIRTUAL COLONOSCOPY 2011 PNEUMOCOCCAL VACCINES (50+ years) (1 of 1 - PCV) 2016 ZOSTER VACCINES (1 of 2) 2016 PAP SMEAR 10/08/2024 INFLUENZA VACCINE (#1) 2025 , 05/30/2024, 05/29/2023, Additional history exists COVID-19 VACCINE ( season) 2025 06/07/2023, 05/27/2022, 05/27/2021, Additional history exists Adult Td,Tdap Booster 08/04/2032 08/04/2022 IUD 10/15/2032 10/15/2024 RSV VACCINE (1 - 1-dose 75+ series) 2041 HEPATITIS A VACCINES Aged Out No long er eligible based on patient's age to complete this topic HIB VACCINES Aged Out No longer eligi ble based on patient's age to complete this topic MENINGOCOCCAL VACCINES (ACWY) Aged Out No longer eligible based on patient's age to complete this topic MENINGOCOCCAL VACCINES (B) Aged Out N o longer eligible based on patient's age to complete this topic Medical Devices Implanted Type Area Obstetrician Gynecologist Device Identifier Shelf Expiration Date Model / Serial / Lot Iud Implanted:06/2025 (Quantity not on file) Intrauterine Device Insurance [employer] POS EPO [employer] [facility] [place] EPO [facility] POS EPO [facility] POS EPO [facility] POS EPO [facility] POS EPO Care Teams Estate Planning Director Relationship Specialty Start Date End Date Brad Mead MD [address] [place] [id number] PCP - General Internal Medicine 09/06/24 Additional Source Comments The information contained in this document represents components of the legal health record. It is not the complete legal health record.[facility]
== END 2025-06-06 12:00 | disposition home or self-care (01) ==
LOC: HO.HMCSH 10:41
PROVIDERS: PCP Physician Assistant Medical; Visit Provider Physician Assistant Medical
DX: Z00.00 Encounter for general adult medical examination without abnormal findings (principal); G43.909 Migraine, unspecified, not intractable, without status migrainosus; R01.1 Cardiac murmur, unspecified; R42 Dizziness and giddiness; K59.00 Constipation, unspecified; R10.9 Unspecified abdominal pain; E78.5 Hyperlipidemia, unspecified

== ENCOUNTER → 2025-06-06 10:41 | Outpatient (BNVA) | payer OTHER, SELFPAY | PROVIDERS: PCP Physician Assistant Medical; Visit Provider Physician Assistant Medical | DX: Z00.00 Encounter for general adult medical examination without abnormal findings (principal); G43.909 Migraine, unspecified, not intractable, without status migrainosus; R31.9 Hematuria, unspecified; H53.8 Other visual disturbances; K59.00 Constipation, unspecified; R10.9 Unspecified abdominal pain; R42 Dizziness and giddiness; E78.5 Hyperlipidemia, unspecified; R01.1 Cardiac murmur, unspecified | CPT/HCPCS: 96127 ==